=== PATIENT | female | born 1955 | race Asian ===

== ENCOUNTER 2016-09-06 03:54 | Inpatient (IN) | payer MEDICAID, OTHER ==
[2016-09-06] VITALS (26 sets, daily range): BP systolic 128–187; BP diastolic 72–138; PULSE 75–108; RESP 14–35; TEMP 97.6; Ht 160 cm; Wt 54.1 kg
[~2016-09-06] VITALS: Ht 160 cm; Wt 54.1 kg
[2016-09-06] MEDS ORDERED: SOD CHLORIDE 0.9% 500 ML IV STA (03:58)
[2016-09-06 04:17] LABS: ADD SCAN DIFF NO
[2016-09-06 04:20] LABS: BASOPHIL # 0.1 10^3/ul (0.0-0.1); BASOPHILS % 0.7 % (0.0-2.0); EOSINOPHILS # 0.2 10^3/ul (0.0-0.5); EOSINOPHILS % 2.9 % (0.0-7.0); LYMPHOCYTES # 1.8 10^3/ul (0.8-2.9); LYMPHOCYTES % 25.4 % (15.0-51.0); MEAN CORPUSCULAR HEMOGLOBIN 30.2 pg (29.0-33.0); MEAN CORPUSCULAR HGB CONC 33.3 g/dl (32.0-37.0); MEAN CORPUSCULAR VOLUME 90.5 fl (82.0-101.0); MEAN PLATELET VOLUME 10.8 fl (7.4-10.4); MONOCYTE # 0.4 10^3/ul (0.3-0.9); MONOCYTES % 5.8 % (0.0-11.0); NEUTROPHIL # 4.5 10^3/ul (1.6-7.5); NEUTROPHILS % 64.9 % (39.0-77.0); PLATELET COUNT 183 10^3/UL (140-415); RED BLOOD COUNT 4.64 10^6/ul (4.20-5.40); RED CELL DISTRIBUTION WIDTH 12.6 % (11.5-14.5); WHITE BLOOD COUNT 6.9 10^3/ul (4.8-10.8)
--- NOTE | 2016-09-06 04:30 | RADRPT ---
PROCEDURE: CT brain without contrast. CLINICAL INDICATION: Stroke. TECHNIQUE: CT scan of the brain was performed on a multi-detector high-resolution CT scanner. Co ntiguous axial images were obtained from the skull base to the vertex without intravenous contrast. Coronal and sagittal reformatted images were also obtained. Images were reviewed on the PACS works tation. One or more of the following dose reduction techniques were used: - Automated exposure control. - Adjustment of the mA and/or kV according to patient size. - Use of iterative reconstruction technique. Exam CTD/vol = 45.01 mGy. Total exam DLP = 720.23 mGy-cm. COMPARISON: None. FINDINGS: There is an area of parenchymal hemorrhage within the left frontal lobe measuring 3.3 x 3.2 cm with mild adjacent edema. There is no midline shift. The ventricles and cortical sulci are prominent co nsistent with mild age related volume loss. There are patchy areas of low attenuation within the pe riventricular white matter consistent with mild chronic ischemic changes secondary to small vessel d isease. There are mild atherosclerotic calcifications within bilateral distal internal carotid gilmar aga. The calvarium is intact. There is no evidence of fracture. Visualized paranasal sinuses and mastoi d air cells are clear. IMPRESSION: Left frontal parenchymal hemorrhage with mild adjacent edema. There is no midline shift. Mild age related volume loss and chronic ischemic white matter disease. Mild cerebral atherosclerosis. A call report was made to Dr. López at 04:28 a.m. .Jovanni Machado MD, MD Date Time Electronically viewed and signed by .Jovanni Machado MD, MD on 09/06/2016 04:29 .T/
[2016-09-06 04:35] LABS: INR 0.91; PROTIME 12.2 Sec (12.2-14.2)
[2016-09-06 04:36] LABS: ANION GAP 7 (8-16); BLOOD UREA NITROGEN 21 mg/dl (7-20); CALCIUM 9.8 mg/dl (8.4-10.2); CARBON DIOXIDE 29 mmol/L (21-31); CHLORIDE 103 mmol/L (97-110); CREATININE 0.83 mg/dl (0.44-1.00); GLUCOSE 106 mg/dl (70-220); POTASSIUM 4.3 mmol/L (3.5-5.1); SODIUM 135 mmol/L (135-144)
--- NOTE | 2016-09-06 04:49 | STROKE ---
Date/Time of Note Date/Time of Note DATE: 09/06/16 TIME: 04:45 Patient Information General Patient location: emergency Arrival Date Age 60 Gender female Weight 51 kg POC Glucose Glucose Result Bedside Glucose - 72 Hours Test 09/06/16 04:09 Bedside Glucose 107mg/dL (70-220) Vital Signs Vital Signs Vital Signs Date Time Temp Pulse Resp B/P Pulse Ox O2 Delivery O2 Flow Rate FiO2 09/06/16 04:08 56 20 201/100 100 Nasal Cannula 2.0 Patient History Current Medications Allergies: Coded Allergies: No Known Allergy (Unverified , 09/06/16) Labs Hematology Labs Hematology Test 09/06/16 04:10 White Blood Count 6.910^3/ul (4.8-10.8) Red Blood Count 4.6410^6/ul (4.20-5.40) Hemoglobin 14.0g/dl (12.0-16.0) Hematocrit 42.0% (37.0-47.0) Mean Corpuscular Volume 90.5fl (82.0-101.0) Mean Corpuscular Hemoglobin 30.2pg (29.0-33.0) Mean Corpuscular Hemoglobin Concent 33.3g/dl (32.0-37.0) Red Cell Distribution Width 12.6% (11.5-14.5) Platelet Count 23794^3/UL (140-415) Mean Platelet Volume 10.8fl (7.4-10.4) Neutrophils % 64.9% (39.0-77.0) Lymphocytes % 25.4% (15.0-51.0) Monocytes % 5.8% (0.0-11.0) Eosinophils % 2.9% (0.0-7.0) Basophils % 0.7% (0.0-2.0) Nucleated Red Blood Cells % 0.0/100WBC (0.0-0.0) Neutrophils # 4.510^3/ul (1.6-7.5) Lymphocytes # 1.810^3/ul (0.8-2.9) Monocytes # 0.410^3/ul (0.3-0.9) Eosinophils # 0.210^3/ul (0.0-0.5) Basophils # 0.110^3/ul (0.0-0.1) Nucleated Red Blood Cells # 0.010^3/ul (0.0-0.0) Chemistry Labs Chemistry Test 09/06/16 04:09 Bedside Glucose 107mg/dL (70-220) Coagulation Labs: Coagulation Test 09/06/16 04:10 Prothrombin Time 12.2Sec (12.2-14.2) Prothrombin Time Ratio 1.0 INR International Normalized Ratio 0.91 Activated Partial Thromboplast Time 32.0Sec (25.0-35.0) History & Physical Patient History Notes Pt Hx Reviewed History of Present Illness 60yo F presents with acute onset speech difficulty. Patient was washing up when her symptoms began, at 2am. Review of Systems Constitutional: no symptoms reported EENTM: no symptoms reported Respiratory: no symptoms reported Cardiovascular: no symptoms reported Gastrointestinal: no symptoms reported Genitourinary: no symptoms reported Musculoskeletal: no symptoms reported Skin: no symptoms reported Psychiatric/Neurological: no symptoms reported All Other Systems: Reviewed and Negative NIH Stroke Scale NIH Stroke Scale 1A - Level of Conciousness: 0 - Alert keenly [id number] LOC Questions: 0 - Answers both questions2 - Best Gaze: 0 - Normal3 - Visual: 0 - No visual loss 4 - Facial Palsy: 0 - No visual loss5A - Motor Arm - Left: 0 - No [id number] - Motor Arm - Right: 1 - [id number] - Motor Leg - Left: 0 - No [id number] - Motor Leg - Right: 0 - No drift7 - Limb Ataxia: 0 - Absent8 - Sensory: 0 - Normal9 - Best Language: 2 - Severe aphasiaDysarthria: 2 - [id number] - Extinction and inattentio: 0 - No abnormalityTotal Score: 5 Date/Time Recorded DATE: 09/06/16 TIME: 04:45 Submitted By Emmett Brand t-PA Imaging Review Imaging Reviewed: Yes Date/Time Imaging Reviewed DATE: 09/06/16 TIME: 04:29 Imaging Findings intraparenchymal hemorrhage t-PA Administration Recommendation: No Weight 51 kg Recommedation submitted by Emmett Brand Reason t-PA not Recommended hemorrhage t-PA Not Recommended Date/Time 09/06/16 04.31 Recommendations Impression Diagnosis intracerebral hemorrhage Recommendation 60yo F presents with acute onset speech difficulty. Neurological exam is notable for patient being mute but able to communicate by writing. Patient was unable to write a sentence to describe the picture, but was able to name objects and answer orientation questions by writing the answers. CT head is notable for intraparenchymal hemorrage in the left frontal lobe. I recommend serial CT Head and neurosurgery consultation. EMMETT BRAND Sep 06, 2016 04:49
[2016-09-06 04:51] LABS: TROPONIN-I < 0.012 ng/ml (0.00-0.12)
--- NOTE | 2016-09-06 05:21 | RADRPT ---
PROCEDURE: Chest. CLINICAL INDICATION: Chest pain. TECHNIQUE: Single frontal view of the chest was obtained. COMPARISON: None. FINDINGS: The cardiac silhouette is enlarged. The aortic arch is unremarkable. There is mild bibasilar atele ctasis. There is no focal consolidation, vascular congestion or pleural effusion. There is no pneu mothorax. IMPRESSION: Mild bibasilar atelectasis. Cardiomegaly. .Jovanni Machado MD, Date Time Electronically viewed and signed by .Jovanni Machado MD, MD on 09/06/2016 05:21 .T/
--- NOTE | 2016-09-06 05:37 | ERA ---
ER Documentation Chief Complaint Date/Time DATE: 09/06/16 TIME: 05:32 Chief Complaint Rt sided weakness, Last well known time 0240. HPI This 60-year-old female presents with acute onset of right arm weakness and inability to speak approximately 1 hour prior to arrival. She has no pain. This was noted by family who called. She has no history of stroke is not any blood thinners and her only medical problem is hypertension for which she takes an unknown medication once a day. Patient herself can follow commands and provide a history with yes and no answers. ROS All systems reviewed and are negative except as per history of present illness. Medications Home Meds Reported Medications Aspirin* (Aspirin* EC) 81 Mg Tablet.dr, 81 MG PO DAILY, TAB 09/06/16 Atenolol* (Atenolol*) 50 Mg Tablet, 50 MG PO DAILY, #30 TAB 09/06/16 Allergies Allergies: Coded Allergies: No Known Allergy (Unverified , 09/06/16) PMhx/Soc Medical and Surgical Hx: pt denies Surgical Hx Hx Cardiac Disorders: Yes (HTN) Hx Alcohol Use: No Hx Substance Use: No Hx Tobacco Use: No Smoking Status: Never smoker Physical Exam Vitals Vital Signs Date Time Temp Pulse Resp B/P Pulse Ox O2 Delivery O2 Flow Rate FiO2 09/06/16 05:46 97.6 63 15 180/100 100 Nasal Cannula 2.0 09/06/16 05:04 60 20 177/92 100 Nasal Cannula 2.0 09/06/16 04:08 56 20 201/100 100 Nasal Cannula 2.0 09/06/16 03:59 67 18 195/111 100 09/06/16 03:54 Nasal Cannula 2 Physical Exam Const: [] Mild distress, looks worried Head: Atraumatic Eyes: Normal Conjunctiva ENT: Normal External Ears, Nose and Mouth. Neck: Full range of motion..~ No meningismus. Resp: Clear to auscultation bilaterally Cardio: Regular rate and rhythm, no murmurs Abd: Soft, non tender, non distended. Normal bowel sounds Skin: No petechiae or rashes Back: No midline or flank tenderness Ext: No cyanosis, or edema Neur: Awake and alert and oriented 3, cranial nerves II through XII intact, no cerebellar deficits on cronin to cronin contact, unable to perform finger-nose test because of patient's right arm weakness, patient can make sounds with her mouth but not form words, 3 out of 5 strength of proximal and distal right upper extremity. NIH equals 4. Psych: Normal Mood and Affect Result Diagram: 09/06/1640909/06/16409 Results 24 hrs Laboratory Tests Test 09/06/16 04:09 09/06/16 04:10 09/06/16 05:34 Bedside Glucose 107mg/dL White Blood Count 6.910^3/ul Red Blood Count 4.6410^6/ul Hemoglobin 14.0g/dl Hematocrit 42.0% Mean Corpuscular Volume 90.5fl Mean Corpuscular Hemoglobin 30.2pg Mean Corpuscular Hemoglobin Concent 33.3g/dl Red Cell Distribution Width 12.6% Platelet Count 24877^3/UL Mean Platelet Volume 10.8fl Neutrophils % 64.9% Lymphocytes % 25.4% Monocytes % 5.8% Eosinophils % 2.9% Basophils % 0.7% Nucleated Red Blood Cells % 0.0/100WBC Neutrophils # 4.510^3/ul Lymphocytes # 1.810^3/ul Monocytes # 0.410^3/ul Eosinophils # 0.210^3/ul Basophils # 0.110^3/ul Nucleated Red Blood Cells # 0.010^3/ul Prothrombin Time 12.2Sec Prothrombin Time Ratio 1.0 INR International Normalized Ratio 0.91 Activated Partial Thromboplast Time 32.0Sec Sodium Level 135mmol/L Potassium Level 4.3mmol/L Chloride Level 103mmol/L Carbon Dioxide Level 29mmol/L Anion Gap 7 Blood Urea Nitrogen 21mg/dl Creatinine 0.83mg/dl Glucose Level 106mg/dl Hemoglobin A1c 5.5% Calcium Level 9.8mg/dl Troponin I < 0.012ng/ml Urine Color STRAW Urine Clarity CLEAR Urine pH 7.0 Urine Specific [place] 1.009 Urine Ketones NEGATIVEmg/dL Urine Nitrite NEGATIVEmg/dL Urine Bilirubin NEGATIVEmg/dL Urine Urobilinogen NEGATIVEmg/dL Urine Leukocyte Esterase NEGATIVELeu/ul Urine Hemoglobin NEGATIVEmg/dL Urine Glucose NEGATIVEmg/dL Urine Total Protein NEGATIVEmg/dl Current Medications Medications (Trade) Dose Ordered Sig/Emily Route PRN Reason Start Time Stop Time Status Last Admin Dose Admin Sodium Chloride (NS) 500 ml @ 500 mls/hr Q1H STAT IV 09/06/16 03:58 09/06/16 04:57 DC 09/06/16 04:48 Procedures/MDM Acute hemorrhagic stroke. Patient with acute onset right parenchymal bleed causing right arm deficits and speech deficits. Initially code stroke was called. Brain bleed was found. Head of bed was elevated greater than 30. Patient's blood pressure is initially quite hypertensive. It did lower without any acute treatment. This point I feel that acutely lowering the blood pressure too much with decreased cerebral perfusion pressure and acute IV medications should not be used. Her blood pressure does increase significant I will decrease the pressure. She is not any blood thinners her coagulation studies are normal. No signs of cardiac ischemia. I spoke with Dr. Syed who will be managed the patient neurosurgically. EKG interpretation: Sinus bradycardia rate of 56, normal axis, no ST or T-wave changes concerning for acute ischemia. Normal intervals. site monitor interpretation: Sinus rhythm without arrhythmia Head CT interpretation: Right spherical 3 cm acute hemorrhage, no mass-effect or midline shift. No skull fracture. Critical care time 41 minutes: This includes management of a hemorrhagic stroke , discussion with neurosurgeon, multiple and frequent visits the patient's bedside to assess status for any signs of increasing intracranial pressure neurological changes, consideration of using backup medication to lower blood pressure, consideration of intubation to hyperventilate patient, discussion with admitting doctor, discussion with patient and family, chart review. This does not include any billable procedures Departure Diagnosis: Primary Impression: Hemorrhagic stroke Additional Impression: Right arm weakness Condition: Critical TERESA BLANK DO Sep 06, 2016 05:37
[2016-09-06 05:51] LABS: ADD UMIC NO; UR ASCORBIC ACID NEGATIVE (NEGATIVE); UR BILIRUBIN (Dip) NEGATIVE (NEGATIVE); UR BLOOD (Dip) NEGATIVE (NEGATIVE); UR CLARITY CLEAR (CLEAR); UR COLOR STRAW (YELLOW); UR GLUCOSE (Dip) NEGATIVE (NEGATIVE); UR KETONES (Dip) NEGATIVE (NEGATIVE); UR LEUKOCYTE ESTERASE (Dip) NEGATIVE Leu/ul (NEGATIVE); UR NITRITE (Dip) NEGATIVE (NEGATIVE); UR SPECIFIC GRAVITY (Dip) 1.009 (1.003-1.030); UR TOTAL PROTEIN (Dip) NEGATIVE (NEGATIVE); UR UROBILINOGEN (Dip) NEGATIVE (NEGATIVE)
[2016-09-06] MEDS ORDERED: ASPI-664 PO ×2 (05:59→06:07)
[2016-09-06] MEDS ORDERED: ATEN50TA PO ×2 (05:59→06:07)
[2016-09-06 06:14] LABS: BARBITURATES Negative (NEGATIVE); BENZODIAZEPINES Negative (NEGATIVE); CANNABINOIDS Negative (NEGATIVE); COCAINE Negative (NEGATIVE); OPIATES Negative (NEGATIVE)
--- NOTE | 2016-09-06 07:00 | HP ---
Date/Time of Note Date/Time of Note DATE: 09/06/16 TIME: 06:41 Assessment/Plan VTE Prophylaxis VTE Prophylaxis Intervention: SCD's Lines/Catheters IV [facility]from [facility] Saline Lock Assessment/Plan Chief Complaint/Hosp Course This is a 52-year-old female being admitted to the ICU floor for: #1 Left frontal parenchymal hemorrhage: CT scan shows: Left frontal parenchymal hemorrhage with mild adjacent edema. There is no midline shift. She was evaluated by tele neurology recommendation was to have neurosurgery evaluate the patient as well. Neurosurgery was contacted they will see the patient. At the current time will manage the patient in the ICU. We will keep the patient n.p.o. for now. Will order speech and swallow eval PT OT, repeat CT scan within 24 hours. Goal is to maintain blood pressure of less than 180/ 105. Consult neurology and neurosurgery is ready on consult. #2 hypertension: Hold home medication at this time. Monitor blood pressure as per #1 #3 DVT and GI prophylaxis: SCDs, Protonix Further treatment strategy will be implemented for the clinical course Greater than 40 minutes of critical care time was spent on the history and physical assessment and plan this patient. Problems: HPI/ROS Admit Date/Time Admit Date/Time Hx of Present Illness Chief complaint: Right arm weakness this 60-year-old female presents with acute onset of right arm weakness and inability to speak approximately 1 hour prior to arrival. She has no pain. This was noted by family who called. She has no history of stroke is not any blood thinners and her only medical problem is hypertension for which she takes an unknown medication once a day. Patient herself can follow commands and provide a history with yes and no answers. Above was obtained from the ED documentation prior to tele-neurology. Upon my examination, patient continues to have expressive aphasia. She however does understand and responds with head nodding and with writing. Her strength on the right side appears to be 4 out of 5 in bilateral upper and lower extremities compared to the left. This likely is improvement from her initial presentation when he was noted to be approximately 3 out of 5 as per the ED physician exam. Medications: See MAR Allergies: NKDA ROS Subjective hx not possible: pt non-verbal (Secondary to acute hemorrhage) PMH/Family/Social Past Medical History Hypertension Past Surgical History Past Surgical Hx: no surgical history Family History Significant Family History: no pertinent family hx Social History Alcohol Use: none Smoking Status: Never smoker Drug Use: none Exam/Review of Systems Vital Signs Vitals Vital Signs Date Time Temp Pulse Resp B/P Pulse Ox O2 Delivery O2 Flow Rate FiO2 09/06/16 06:08 60 15 175/98 100 Nasal Cannula 2.0 09/06/16 05:46 97.6 Exam Exam General: Patient is a well-developed female laying in bed in no acute distress. HEENT: Atraumatic, normocephalic. The pupils are equal, round and reactive. Extraocular motor are intact Neck: Supple with full range of motion. No rigidity or meningismus Chest: Nontender Lungs: Clear to auscultation bilaterally no crackles rales or wheezing Heart: Normal S1-S2, Regular rhythm and rate. No murmur, S3, or S4 Abdomen: Soft , nontender, nondistended , bowel sounds are present. No guarding no rebound tenderness , No masses or organomegaly. No costovertebral temporal angle mass Extremities: Normal to inspection, no edema no cyanosis Neurologic: Patient is awake and alert, she is mute at the current time. She is able to respond to questions with head nodding as well as writing her answers down. She does have focal neurological deficits of not being able to speak. On my exam her right upper extremity and lower extremity strength is 4 out of 5 bilaterally. Which is an improvement from earlier when it was noted to be 3 out of 5 on her initial presentation and examination. Additional Comments PROCEDURE: CT brain without contrast. CLINICAL INDICATION: Stroke. TECHNIQUE: CT scan of the brain was performed on a multi-detector high- resolution CT scanner. Contiguous axial images were obtained from the skull base to the vertex without intravenous contrast. Coronal and sagittal reformatted images were also obtained. Images were reviewed on the PACS workstation. One or more of the following dose reduction techniques were used: - Automated exposure control. - Adjustment of the mA and/or kV according to patient size. - Use of iterative reconstruction technique. Exam CTD/vol = 45.01 mGy. Total exam DLP = 720.23 mGy-cm. COMPARISON: None. FINDINGS: There is an area of parenchymal hemorrhage within the left frontal lobe measuring 3.3 x 3.2 cm with mild adjacent edema. There is no midline shift. The ventricles and cortical sulci are prominent consistent with mild age related volume loss. There are patchy areas of low attenuation within the periventricular white matter consistent with mild chronic ischemic changes secondary to small vessel disease. There are mild atherosclerotic calcifications within bilateral distal internal carotid arteries. The calvarium is intact. There is no evidence of fracture. Visualized paranasal sinuses and mastoid air cells are clear. IMPRESSION: Left frontal parenchymal hemorrhage with mild adjacent edema. There is no midline shift. Mild age related volume loss and chronic ischemic white matter disease. Mild cerebral atherosclerosis. A call report was made to Dr. López at 04:28 a.m. .Jovanni Machado MD, MD Date Time Electronically viewed and signed by .Jovanni Machado MD, MD on 09/06/2016 04:29 EKG interpretation: Sinus bradycardia rate of 56, normal axis, no ST or T-wave changes concerning for acute ischemia. Normal intervals. As per ED physician documentation Labs Result Diagram: 09/06/16 0410 09/06/16 0410 LANIE POWELL Sep 06, 2016 06:59
[2016-09-06] MEDS ORDERED: LABETALOL HCL 20MG INJ IV PRN (07:30)
[2016-09-06] MEDS ORDERED: ACETAMINOPHEN 325 MG TAB PO PRN (07:30)
[2016-09-06] MEDS ORDERED: ACETAMINOPHEN 650 MG SUPP PR PRN (07:30)
[2016-09-06 08:18] LABS: CHOL/HDL RATIO 2.9 RATIO
--- NOTE | 2016-09-06 10:06 | CONS ---
Date/Time of Note Date/Time of Note DATE: 09/06/16 TIME: 09:41 Assessment/Plan Assessment/Plan Problems: (1) Intracranial hemorrhage Comment: Patient with spontaneous posterior L frontal bleed. This is about 3cm with some local mass effect but no shift. She remains awake and alert. No indication for neurosurgical intervention at this time. She has productive aphasia and R arm weakness, which is consistent with site of bleed. May also have apraxia. Will require observation and rehabilitation given neurological deficit. With proper rehabilitation, including OT/PT/speech therapy , prognosis is good for significant recovery. She does have HTN, unclear if this was well-controlled. While hypertensive bleed is a possibility, the lobar location of the bleed is not typical. This raises the possibility of other causes, including underlying vascular abnormality or tumor. Bleed not c/w perdue aneurysm but could be AVM, other vascular malformation, tumor, other vasculopathy. This will require further investigation. Risk of rebleed is low but not zero from these potential causes. Recommend: 1. Observe in ICU. 2. BP control with goal to keep SBP < about 160. Do not overtreat BP, ideally SBP 140-170. 3[address] Repeat CT later today. 4. If CT not significantly changed, OK to transfer from ICU. If CT unchanged, OK to advance diet and activity. 5. Will require MRI +/- contrast. Further studies possible depending upon findings. If MRI negative, will need to repeat scan in 6-8 weeks since underlying abnormality could be hidden by acute blood products. 6. Plan on PT/OT/speech therapy. 7. No narcotics or sedatives. 8. No indication for steroids. 9. No strong indication for anticonvulsant medications, but will defer to neurology. 10. Keep patient euvolemic. Avoid hypovolemia or fluid overload. Consultation Date/Type/Reason Admit Date/Time Date of Consultation: Sep 06, 2016 Type of Consultation: Neurosurgery Reason for Consultation Brain Hemorrhage Hx of Present Illness Patient seen in ER. History obtained from chart and from MDs as patient is unable to provide history. Apparently, at about 2AM, she had sudden onset of speech difficulty and R hand weakness. No seizure or syncope. No trauma. No precipitating event. Denies headache or any pain. This happened while she was washing and it was noted by family. She was brought to ER for evaluation. CT done. She was noted to be hypertensive with SBP > 200. At the current time, she is limited in communication, but she does seem to nod appropriately to simple questions. She is R handed and attempts to write with her L hand to communicate as well, but this in not intelligible. No history of stroke or other neurological problems. Does have history of HTN. Do not know if this is well-treated. Subjective hx not possible: pt non-verbal Eyes: No visual change Respiratory: No shortness of breath Cardiovascular: No chest pain Gastrointestinal: No pain Musculoskeletal: No neck pain Neurologic: focal-weakness, No dizziness, No headache, No seizure, No syncope Additional Comments ROS limited due to communication but able to get some answers as she nods Past Medical History Medical History: hypertension Past Surgical History Past Surgical Hx: no surgical history Social History Alcohol Use: none Smoking Status: Never smoker Drug Use: none Exam/Review of Systems Vital Signs Vitals Vital Signs Date Time Temp Pulse Resp B/P Pulse Ox O2 Delivery O2 Flow Rate FiO2 09/06/16 07:19 63 29 169/91 100 09/06/16 06:08 Nasal Cannula 2.0 09/06/16 05:46 97.6 Exam Constitutional: alert Head: atraumatic, normocephalic Eyes: EOMI, PERRL Neck: non-tender, supple, No nuchal rigidity Extremities: normal pulses, other (scar R cronin), No calf tenderness, No edema Neurological: other (easily arousable to voice. Opens eyes and regards examiner. No vocalizations. Nods to questions. Purposeful and follows commands, but with some apraxia as she does not follow commands precisely (e.g., show 2 fingers or stick out tongue). PERRL, EOMI, possible very mild R facial weakness , central pattern, more detailed CN exam not possible; 5/5 strength throughout on L with normal bulk and tone; RUE proximal 4/5 with slowness to response, public health inspector 0/5; RLE 5/5 proximal and distal; bulk and tone normal; does nod that she is able to feel LT all extremities; DTRs 2+/2 throughout, but R side slightly more brisk at bicep and knee; L toe downgoing, R toe equivocal; more detailed exam not possible), No lethargic, No nl speech, No nl strength Results I reviewed CT brain showing acute ICH posterior L frontal. Just over 3cm. This is lobar hemorrhage rather than deep hemorrhage. Some local mass effect, no midline shift. Ventricles normal in size, no IVH. ? small amount of blood in sulci adjacent to site of intraparenchymal bleed. Result Diagram: 09/06/16 0410 09/06/16 0410 Results 24 hrs Laboratory Tests Test 09/06/16 04:09 09/06/16 04:10 09/06/16 05:34 Bedside Glucose 107 White Blood Count 6.9 Red Blood Count 4.64 Hemoglobin 14.0 Hematocrit 42.0 Mean Corpuscular Volume 90.5 Mean Corpuscular Hemoglobin 30.2 Mean Corpuscular Hemoglobin Concent 33.3 Red Cell Distribution Width 12.6 Platelet Count 183 Mean Platelet Volume 10.8 H Neutrophils % 64.9 Lymphocytes % 25.4 Monocytes % 5.8 Eosinophils % 2.9 Basophils % 0.7 Nucleated Red Blood Cells % 0.0 Neutrophils # 4.5 Lymphocytes # 1.8 Monocytes # 0.4 Eosinophils # 0.2 Basophils # 0.1 Nucleated Red Blood Cells # 0.0 Prothrombin Time 12.2 Prothrombin Time Ratio 1.0 INR International Normalized Ratio 0.91 Activated Partial Thromboplast Time 32.0 Sodium Level 135 Potassium Level 4.3 Chloride Level 103 Carbon Dioxide Level 29 Anion Gap 7 L Blood Urea Nitrogen 21 H Creatinine 0.83 Glucose Level 106 Hemoglobin A1c 5.5 Calcium Level 9.8 Troponin I < 0.012 Triglycerides Level 86 Cholesterol Level 217 H LDL Cholesterol, Calculated 126 HDL Cholesterol 74 Cholesterol/HDL Ratio 2.9 Urine Color STRAW Urine Clarity CLEAR Urine pH 7.0 Urine Specific [place] 1.009 Urine Ketones NEGATIVE Urine Nitrite NEGATIVE Urine Bilirubin NEGATIVE Urine Urobilinogen NEGATIVE Urine Leukocyte Esterase NEGATIVE Urine Hemoglobin NEGATIVE Urine Glucose NEGATIVE Urine Total Protein NEGATIVE Urine Opiates Screen Negative Urine Barbiturates Negative Urine Amphetamines Screen Negative Urine Benzodiazepines Screen Negative Urine Cocaine Screen Negative Urine Cannabinoids Negative Medications Medications Current Medications Ondansetron HCl (Zofran Inj) 4 mg Q6H PRN IV NAUSEA AND/OR VOMITING; Start at 07:30 Acetaminophen (Tylenol Supp) 650 mg Q4H PRN [place] PAIN LEVEL 1-3 OR FEVER; Start 09/06/16 at 07:30 Pantoprazole (Protonix Iv) 40 mg DAILY@06 IV ; Start 09/07/16 at 06:00 Labetalol HCl (Labetalol) 10 mg Q10M PRN IV ELEVATED BLOOD PRESSURE; Start at 07:30 Acetaminophen (Tylenol Tab) 650 mg Q4H PRN PO TEMP GREATER THAN 99.6F; Start at 07:30 Docusate Sodium (Colace) 100 mg BID PO ; Start 09/06/16 at 21:00 SHAYNA GOLD MD Sep 06, 2016 09:52
--- NOTE | 2016-09-06 11:04 | CONS ---
Date/Time of Note Date/Time of Note DATE: 09/06/16 TIME: 10:50 Assessment/Plan Assessment/Plan Chief Complaint/Hosp Course 60 year old female with history of hypertension admitted with left frontal cortical hemorrhage ~30 cc w mild edema without midline shift, no requirement for neurosurgical intervention at this time. Recommendations: -agree with plan to lower SBP<160 gradually will achieve goal of less than 140 over the next few days -holding all antiplatelets, may use SCD for DVT ppx -MRI Brain with and without contrast to evaluate for underlying mass/ vascular malformation, include SWI sequence to r/o amyloid angiopathy -maintain afebrile, euglycemic, isotonic fluids only -no reported seizure activity, will hold of on AED prophylaxis -planned for repeat Head CT later today -continue close neuro checks agree with plan for ICU admission -PT/OT/Speech she will likely benefit from Acute Rehab -will request. Dr. Rob to follow tomorrow Problems: Consultation Date/Type/Reason Admit Date/Time 09/06/16 Date of Consultation: Sep 06, 2016 Type of Consultation: Neurology Reason for Consultation right cortical hemorrhage Referring Provider: LANIE POWELL Hx of Present Illness 60 year old female from [facility] with history of hypertension reportedly on aspirin at home admitted with right arm weakness and expressive aphasia one hour prior to arrival with elevated SBP>200, imaging showed left frontal parenchymal hemorrhage ~30 cc with mild edema without midline shift or signs of hydrocephalus. There is no report of seizure activity she has no history of prior admission for similar symptoms. She is planned for ICU admission for close monitoring and further work up to rule out underlying mass/ vascular malformation. Subjective hx not possible: pt critical Eyes: No visual change Respiratory: No shortness of breath Cardiovascular: No chest pain Gastrointestinal: No pain Musculoskeletal: No neck pain Neurologic: focal-weakness, No dizziness, No headache, No seizure, No syncope Past Medical History Medical History: hypertension Past Surgical History Past Surgical Hx: no surgical history Social History Alcohol Use: none Smoking Status: Never smoker Drug Use: none Exam/Review of Systems Vital Signs Vitals Vital Signs Date Time Temp Pulse Resp B/P Pulse Ox O2 Delivery O2 Flow Rate FiO2 09/06/16 10:00 57 16 150/87 100 Room Air 09/06/16 06:08 2.0 09/06/16 05:46 97.6 Exam awake and alert tracks examiner well can only say her name mostly expressive aphasia she does follow most commands no neglect likely verbal apraxia CN: LAURA, blinks to threat b/l, right facial droop, palate upgoing uvula midline scm/trap intact tongue midline Motor: right arm lifts anti-gravity can sustain over 10 seconds with weak parts cataloger strength 3/5, right leg anti-gravity strength 4/5 left arm and left full strength 5/5 Sensory senses noxious stimuli on right arm and leg Coordination ataxia in proportion to weakness on right arm Reflexes 2+ symmetric throughout Results Result Diagram: 09/06/160 09/06/16409 Results 24 hrs Laboratory Tests Test 09/06/16 04:09 09/06/16 04:10 09/06/16 05:34 Bedside Glucose 107 White Blood Count 6.9 Red Blood Count 4.64 Hemoglobin 14.0 Hematocrit 42.0 Mean Corpuscular Volume 90.5 Mean Corpuscular Hemoglobin 30.2 Mean Corpuscular Hemoglobin Concent 33.3 Red Cell Distribution Width 12.6 Platelet Count 183 Mean Platelet Volume 10.8 H Neutrophils % 64.9 Lymphocytes % 25.4 Monocytes % 5.8 Eosinophils % 2.9 Basophils % 0.7 Nucleated Red Blood Cells % 0.0 Neutrophils # 4.5 Lymphocytes # 1.8 Monocytes # 0.4 Eosinophils # 0.2 Basophils # 0.1 Nucleated Red Blood Cells # 0.0 Prothrombin Time 12.2 Prothrombin Time Ratio 1.0 INR International Normalized Ratio 0.91 Activated Partial Thromboplast Time 32.0 Sodium Level 135 Potassium Level 4.3 Chloride Level 103 Carbon Dioxide Level 29 Anion Gap 7 L Blood Urea Nitrogen 21 H Creatinine 0.83 Glucose Level 106 Hemoglobin A1c 5.5 Calcium Level 9.8 Troponin I < 0.012 Triglycerides Level 86 Cholesterol Level 217 H LDL Cholesterol, Calculated 126 HDL Cholesterol 74 Cholesterol/HDL Ratio 2.9 Urine Color STRAW Urine Clarity CLEAR Urine pH 7.0 Urine Specific [place] 1.009 Urine Ketones NEGATIVE Urine Nitrite NEGATIVE Urine Bilirubin NEGATIVE Urine Urobilinogen NEGATIVE Urine Leukocyte Esterase NEGATIVE Urine Hemoglobin NEGATIVE Urine Glucose NEGATIVE Urine Total Protein NEGATIVE Urine Opiates Screen Negative Urine Barbiturates Negative Urine Amphetamines Screen Negative Urine Benzodiazepines Screen Negative Urine Cocaine Screen Negative Urine Cannabinoids Negative Medications Medications Current Medications Ondansetron HCl (Zofran Inj) 4 mg Q6H PRN IV NAUSEA AND/OR VOMITING; Start at 07:30 Acetaminophen (Tylenol Supp) 650 mg Q4H PRN [place] PAIN LEVEL 1-3 OR FEVER; Start 09/06/16 at 07:30 Pantoprazole (Protonix Iv) 40 mg DAILY@06 IV ; Start 09/07/16 at 06:00 Labetalol HCl (Labetalol) 10 mg Q10M PRN IV ELEVATED BLOOD PRESSURE; Start at 07:30 Acetaminophen (Tylenol Tab) 650 mg Q4H PRN PO TEMP GREATER THAN 99.6F; Start at 07:30 Docusate Sodium (Colace) 100 mg BID PO ; Start 09/06/16 at 21:00 HENRY STALLINGS MD Sep 06, 2016 11:02
--- NOTE | 2016-09-06 11:29 | RADRPT ---
PROCEDURE: CT Brain without contrast. CLINICAL INDICATION: 60-year-old female prior intracranial hemorrhage. Follow-up imaging. TECHNIQUE: A CT of the brain was performed on a [employer] V[employer] CT scanner utiliz ing a low dose technique with axial imaging from the skull base through the vertex without IV contra st. Multiplanar reformatted images were made. Images were reviewed on a PACS workstation. The CTD Ivol is 45 mGy and the DLP is 720 mGycm. One or more of the following dose reduction techniques were used: - Automated exposure control. - Adjustment of the mA and/or kV according to patient size. Use of iterative reconstruction technique. COMPARISON: CT scan of the brain 09/06/2016 04:04 a.m. FINDINGS: The fourth ventricle is normal in size. The third and lateral ventricles are normal in size and con figuration. A stable hematoma is identified in the dorsal left frontal lobe measuring about 3.2 cm t ransverse by 3.1 cm AP. This is unchanged compared to the prior study when measured about 3.2 cm tr ansverse by 3 cm AP in the axial plane. In the coronal plane the long axis of the hematoma measures up to 5.5 cm. It measured only 4.8 cm on the prior study in the coronal plane. There are slight di fferences in orientation which may explain mass apparent change. There is surrounding vasogenic steven a with no evidence of subfalcine or transtentorial herniation noted. There are chronic small vessel ischemic changes in the periventricular white matter tracts adjacent to the lateral ventricles with mild cerebral atrophy. These findings are unchanged. The visible portions of the globes and extraocular muscles are normal. The paranasal sinuses are cl ear. The mastoid air cells and internal auditory canals are normal. The bony calvarium is intact. There are vascular calcifications in the cavernous and supracavernous portions of the internal carot id arteries. IMPRESSION: 1. Possible slight interval increase in the coronal plane of the intracranial hematoma left frontal lobe. It now measures up to 5.5 cm in long axis in the coronal plane as compared to 4.8 cm on the prior study. Apparent differences are most likely the result of slight orientation of the reconstru cted coronal images. It is unchanged in the axial plane. There is surrounding vasogenic edema. 2. Mild cerebral atrophy with chronic small vessel ischemic changes in the periventricular white ma tter tracts adjacent to the lateral ventricles. 3. There are vascular calcifications in the cavernous and supracavernous portions of the internal ca rotid arteries. RPTAT:AAJJ Physician Cyndie Date Time Electronically viewed and signed by Jose Hernandez Physician on 09/06/2016 11:29 MANUEL/
[2016-09-06] MEDS: hydrALAzine 20 MG INJ IV PRN ×2 (12:04→20:29)
--- NOTE | 2016-09-06 12:30 | PN ---
Date/Time of Note Date/Time of Note DATE: 09/06/16 TIME: 12:23 Assessment/Plan VTE Prophylaxis VTE Prophylaxis Intervention: SCD's Lines/Catheters IV [facility] Saline Lock Assessment/Plan Chief Complaint/Hosp Course Assessment and plan 1. Acute CVA with left frontal parenchymal hemorrhage: Neurosurgery and neurology has been consulted Minimal increase in the size of the hemorrhage on repeat CT and neurosurgery has been notified regarding this matter. No midline shift No change in patient's mental condition. We will keep the patient n.p.o. for now. Will order speech and swallow eval PT OT, Continue to monitor blood pressure 2. hypertension: Patient has been placed on as needed blood pressure, hold home medication until advised by neurology 3. DVT and GI prophylaxis: SCDs, Protonix (refrain from using any pharmacologic DVT prophylaxis secondary to intracranial hemorrhage) Further treatment strategy will be implemented for the clinical course Problems: Subjective 24 Hr Interval Summary Free Text/Dictation Patient denies of any headache changes visual acuity Denies any chest pain or shortness of breath Right upper extremity weakness Exam/Review of Systems Vital Signs Vitals Vital Signs Date Time Temp Pulse Resp B/P Pulse Ox O2 Delivery O2 Flow Rate FiO2 09/06/16 12:02 60 14 182/104 100 Room Air 09/06/16 06:08 2.0 09/06/16 05:46 97.6 Exam General: The patient is well-developed, Not in acute distress. HEENT: Atraumatic, normocephalic. The pupils are equal and round . Neck: Supple Chest: Normal Lungs: Clear to auscultation bilaterally Heart: Normal S1-S2, Regular rhythm and rate. Abdomen: Soft , nontender, nondistended , bowel sounds are present. Extremities: Right upper extremity weakness3/5 , with flexion at the wrist, left upper extremity and bilateral lower extremity full range of motion and strength is 5 out of 5, no edema no cyanosis Neurologic: Normal mental status,The patient is awake, alert and oriented . Results Result Diagram: 09/06/16 0410 09/06/16 0410 Results 24 hrs Laboratory Tests Test 09/06/16 04:09 09/06/16 04:10 09/06/16 05:34 Bedside Glucose 107 White Blood Count 6.9 Red Blood Count 4.64 Hemoglobin 14.0 Hematocrit 42.0 Mean Corpuscular Volume 90.5 Mean Corpuscular Hemoglobin 30.2 Mean Corpuscular Hemoglobin Concent 33.3 Red Cell Distribution Width 12.6 Platelet Count 183 Mean Platelet Volume 10.8 H Neutrophils % 64.9 Lymphocytes % 25.4 Monocytes % 5.8 Eosinophils % 2.9 Basophils % 0.7 Nucleated Red Blood Cells % 0.0 Neutrophils # 4.5 Lymphocytes # 1.8 Monocytes # 0.4 Eosinophils # 0.2 Basophils # 0.1 Nucleated Red Blood Cells # 0.0 Prothrombin Time 12.2 Prothrombin Time Ratio 1.0 INR International Normalized Ratio 0.91 Activated Partial Thromboplast Time 32.0 Sodium Level 135 Potassium Level 4.3 Chloride Level 103 Carbon Dioxide Level 29 Anion Gap 7 L Blood Urea Nitrogen 21 H Creatinine 0.83 Glucose Level 106 Hemoglobin A1c 5.5 Calcium Level 9.8 Troponin I < 0.012 Triglycerides Level 86 Cholesterol Level 217 H LDL Cholesterol, Calculated 126 HDL Cholesterol 74 Cholesterol/HDL Ratio 2.9 Urine Color STRAW Urine Clarity CLEAR Urine pH 7.0 Urine Specific [place] 1.009 Urine Ketones NEGATIVE Urine Nitrite NEGATIVE Urine Bilirubin NEGATIVE Urine Urobilinogen NEGATIVE Urine Leukocyte Esterase NEGATIVE Urine Hemoglobin NEGATIVE Urine Glucose NEGATIVE Urine Total Protein NEGATIVE Urine Opiates Screen Negative Urine Barbiturates Negative Urine Amphetamines Screen Negative Urine Benzodiazepines Screen Negative Urine Cocaine Screen Negative Urine Cannabinoids Negative Medications Medications Current Medications Ondansetron HCl (Zofran Inj) 4 mg Q6H PRN IV NAUSEA AND/OR VOMITING; Start at 07:30 Acetaminophen (Tylenol Supp) 650 mg Q4H PRN [place] PAIN LEVEL 1-3 OR FEVER; Start 09/06/16 at 07:30 Pantoprazole (Protonix Iv) 40 mg DAILY@06 IV ; Start 09/07/16 at 06:00 Labetalol HCl (Labetalol) 10 mg Q10M PRN IV ELEVATED BLOOD PRESSURE; Start at 07:30 Acetaminophen (Tylenol Tab) 650 mg Q4H PRN PO TEMP GREATER THAN 99.6F; Start at 07:30 Docusate Sodium (Colace) 100 mg BID PO ; Start 09/06/16 at 21:00 Hydralazine HCl (Apresoline) 10 mg Q6H PRN IV SBP ABOVE 165 Last administered on 09/06/16t 12:04; Admin Dose 10 MG; Start 09/06/16 at 12:00 DIAMOND CURRIE MD Sep 06, 2016 12:30
--- NOTE | 2016-09-06 14:11 | RADRPT ---
PROCEDURE: Carotid ultrasound CLINICAL INDICATION: Carotid stenosis, carotid bruits TECHNIQUE: Montero scale, color doppler, spectral doppler ultrasound of the bilateral carotid and gabe tebral arteries. This study indirectly references the measurement of the distal ICA diameter as the denominator for s tenosis measurement. Validated velocity measurements with angiographic measurements, velocity criter ia are extrapolated from diameter data as defined by: *Cartoid artery stenosis: montero-scale and Doppl er US diagnosis. Society of Radiologists in Ultrasound Consensus Conference. Radiology 2003; 229: 34 0-346. SRU Consensus Conference Criteria for the Diagnosis of Carotid Artery Stenosis* Degree of Stenosis, % ICA PSV, cm/sec Plaque Estimate, % ICA/CCA PSV Ratio Normal <125 None <2.0 <50 <125 <50 <2.0 50 69 125-230 >50 2.0-4.0 >70 but less than near occlusion >230 >50 <4.0 Near occlusion High, low, or undetectable Visible Variable Total occlusion Undetectable Visible, no detectable lumen Not applicable COMPARISON: No prior studies are available for comparison. FINDINGS: Location Right CCA91 cm/sec Prox ICA 65 cm/sec Mid ICA58 cm/sec Dist ICA46 cm/sec ECA67 cm/sec ICA/CCA0.8 Left CCA91 cm/sec Prox ICA 61 cm/sec Mid ICA61 cm/sec Dist ICA55 cm/sec ECA71 cm/sec ICA/CCA0.8 Plaque burden: No significant plaque is seen. Antegrade flow is seen within the vertebral arteries bilaterally. IMPRESSION: No evidence of a hemodynamically significant carotid stenosis. RPTAT: AADD .Tommy Fonseca MD, Date Time Electronically viewed and signed by .Tommy Fonseca MD, MD on 09/06/2016 14:10 .B/
--- NOTE | 2016-09-06 16:08 | RADRPT ---
PROCEDURE: MR Brain with and without contrast. CLINICAL INDICATION: Intracranial hemorrhage, assess for stroke TECHNIQUE: An MRI of the brain was performed utilizing the following sequences: Axial T1, axial T 2, axial FLAIR, coronal gradient echo, sagittal T1 FLAIR, diffusion weighted imaging, and ADC map. P ostcontrast images were obtained after administration of 10 cc of Magnevist. COMPARISON: CT of the same day FINDINGS: There is a left frontal parietal parenchymal hematoma, measuring up to 3.4 x 3.9 x 3.1 cm CC by AP b y transverse. There is heterogeneous high T1 signal consistent with acute blood products. There is mild adjacent T2 hyperintensity consistent with vasogenic edema. There is no diffusion restriction identified to suggest acute infarct. There is effacement of overlying sulci. Ventricles remain symm etric and normal in configuration. There is minimal midline shift to the right, measuring up to 2 m m. There is susceptibility artifact in the posterior right external capsule, and in the right frontal c raffaele radiata, which appears consistent with small areas of old blood products. There is a small foc us of susceptibility artifact in the high right frontal lobe as well. There is an old lacunar infar ct in the right frontal periventricular white matter. There is moderate diffuse cerebral atrophy. There are scattered areas of increased T2/FLAIR signal in the brain parenchyma. This is a nonspecifi c finding, but most likely represents moderate small vessel ischemic changes. There is no abnormal e nhancement identified. The sella and suprasellar cistern appear within normal limits. The brainstem and posterior fossa ar e normal in configuration. The orbital soft tissue contents are unremarkable. There is mucosal thickening in the maxillary sinu ses. IMPRESSION: 1. Left frontal parietal parenchymal hematoma, 3.4 x 3.9 x 3.1 cm. This is similar from recent CT examination. There is mild adjacent edema, with minimal midline shift to the right, 2 mm. There is no associated enhancing lesion identified. The hemorrhage may be related to hypertension or injury . Evidence for acute infarct is not identified. Contrast enhanced follow-up after resolution of th e current blood products is suggested to exclude underlying lesion. 2. Evidence of small old blood products in the right external capsule, right frontal anthony radiata , and high right frontal lobe, consistent with small old prior bleeds. These may be hypertensive or traumatic in etiology as well. 3. Old right frontal periventricular lacunar infarct. 4. Moderate age related cerebral volume loss and small vessel ischemic change. RPTAT: DD .Lit Landeros MD, Date Time Electronically viewed and signed by .Lit Landeros MD, on 09/06/2016 16:08 .T/
--- NOTE | 2016-09-06 19:41 | QN ---
Documentation Comment I reviewed follow-up CT which is not significantly changed. MRI does not show evidence of vascular malfomation or other underlying structural abnormality. MRI does show several small areas of old hemorrhage in other areas of the brain. These do not have classic appearance of cavernous malformations. Unless patient is thought to have had clearly longstanding poorly -controlled hypertension, would consider neurology consult to further assess for underlying pathology such as vasculitis or other systemic disease. SHAYNA GOLD MD Sep 06, 2016 19:41
[2016-09-06] MEDS: DOCUSATE SODIUM 100 MG CAP PO SCH (21:00)
[2016-09-06] MEDS: ONDANSETRON 4 MG INJ IV PRN (22:55)
[2016-09-07] VITALS (36 sets, daily range): BP systolic 120–177; BP diastolic 62–116; PULSE 70–112; RESP 11–34
[2016-09-07 05:08] LABS: ADD SCAN DIFF NO
[2016-09-07 05:09] LABS: BASOPHILS % 0.4 % (0.0-2.0); EOSINOPHILS % 0.1 % (0.0-7.0); HEMATOCRIT 42.5 % (37.0-47.0); HEMOGLOBIN 14.1 g/dl (12.0-16.0); LYMPHOCYTES # 1.4 10^3/ul (0.8-2.9); LYMPHOCYTES % 15.1 % (15.0-51.0); MEAN CORPUSCULAR HEMOGLOBIN 29.9 pg (29.0-33.0); MEAN CORPUSCULAR HGB CONC 33.2 g/dl (32.0-37.0); MEAN CORPUSCULAR VOLUME 90.2 fl (82.0-101.0); MEAN PLATELET VOLUME 10.8 fl (7.4-10.4); MONOCYTE # 0.7 10^3/ul (0.3-0.9); MONOCYTES % 7.7 % (0.0-11.0); NEUTROPHILS % 76.4 % (39.0-77.0); PLATELET COUNT 188 10^3/UL (140-415); RED BLOOD COUNT 4.71 10^6/ul (4.20-5.40); RED CELL DISTRIBUTION WIDTH 12.9 % (11.5-14.5); WHITE BLOOD COUNT 9.2 10^3/ul (4.8-10.8)
[2016-09-07 05:41] LABS: CALCIUM 9.6 mg/dl (8.4-10.2); CREATININE 0.67 mg/dl (0.44-1.00); POTASSIUM 3.1 mmol/L (3.5-5.1)
[2016-09-07] MEDS: PANTOPRAZOLE 40 MG INJ IV SCH (05:59)
[2016-09-07] MEDS ORDERED: POTASSIUM CHLORIDE 250 ML IVPB ONE (06:30)
[2016-09-07] MEDS: DOCUSATE SODIUM 100 MG CAP PO SCH ×2 (08:49→20:46)
--- NOTE | 2016-09-07 14:26 | RADRPT ---
PROCEDURE: CT Brain without contrast. CLINICAL INDICATION: History of intracranial hemorrhage. TECHNIQUE: A CT of the brain without contrast was performed utilizing axial sections from the skul l base through the vertex. The patient was scanned without intravenous contrast enhancement. [place] l and coronal reformatted images were obtained using the data from the axial images. Total exam DLP is 720.23 mGy-cm. CTDIvol is 42.69 mGy. One or more of the following dose reduction techniques we re used: Automated exposure control, adjustment of the mA and/or kV according to patient size, use o f iterative reconstruction technique. COMPARISON: CT scan of the brain dated 09/06/2016. FINDINGS: The fourth ventricle is normal in size. The third and lateral ventricles are normal in size and conf iguration. A hematoma is identified in the dorsal left frontal lobe measuring approximately 3.1 x 3. 0 x 5.5 cm in AP, transverse, and cranial caudal dimensions, similar to the prior study. There is lua rrounding vasogenic edema with no evidence of subfalcine or transtentorial herniation noted. There a re chronic small vessel ischemic changes in the periventricular white matter tracts adjacent to the lateral ventricles with mild cerebral atrophy, unchanged. The visible portions of the globes and extraocular muscles are normal. The paranasal sinuses are arleen ar. The mastoid air cells and internal auditory canals are normal. The bony calvarium is intact. The re are vascular calcifications in the cavernous and supracavernous portions of the internal carotid arteries. IMPRESSION: 1. Left posterior frontal hematoma, similar to the prior study. 2. No new intracranial hemorrhage. RPTAT: QQ .Jayy Mccullough MD, MD Date Time Electronically viewed and signed by .Jayy Mccullough MD, on 09/07/2016 14:26 .R/
[2016-09-07] MEDS: hydrALAzine 20 MG INJ IV PRN (15:02)
--- NOTE | 2016-09-07 16:22 | PN ---
Date/Time of Note Date/Time of Note DATE: 09/07/16 TIME: 16:17 Assessment/Plan VTE Prophylaxis VTE Prophylaxis Intervention: SCD's Lines/Catheters [facility] Saline Lock Urinary Cath still in place: No Assessment/Plan Chief Complaint/Hosp Course 1. 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 Hypertension: Will start Norvasc and hold home Atenelol 3. DVT and GI prophylaxis: SCDs, Protonix (refrain from using any pharmacologic DVT prophylaxis secondary to intracranial hemorrhage) Problems: Subjective 24 Hr Interval Summary Constitutional: no complaints Exam/Review of Systems Vital Signs Vitals Vital Signs Date Time Temp Pulse Resp B/P Pulse Ox O2 Delivery O2 Flow Rate FiO2 09/07/16 12:00 97.7 70 15 144/93 99 Room Air 09/06/16 06:08 2.0 Intake and Output 09/06/16 09/06/16 09/07/16 15:00 23:00 07:00 Intake Total 0 ml 0 ml Output Total 1500 ml 410 ml 240 ml Balance -1500 ml -410 ml -240 ml Exam Constitutional: alert Respiratory: clear to auscultation Cardiovascular: regular rate and rhythm Gastrointestinal: soft, No distended Musculoskeletal: nl extremities to inspection Results Result Diagram: 09/07/16 0436 09/07/16 0436 Results 24 hrs Laboratory Tests Test 09/07/16 04:36 White Blood Count 9.2 # Red Blood Count 4.71 Hemoglobin 14.1 Hematocrit 42.5 Mean Corpuscular Volume 90.2 Mean Corpuscular Hemoglobin 29.9 Mean Corpuscular Hemoglobin Concent 33.2 Red Cell Distribution Width 12.9 Platelet Count 188 Mean Platelet Volume 10.8 H Neutrophils % 76.4 Lymphocytes % 15.1 Monocytes % 7.7 Eosinophils % 0.1 Basophils % 0.4 Nucleated Red Blood Cells % 0.0 Neutrophils # 7.0 Lymphocytes # 1.4 Monocytes # 0.7 Eosinophils # 0.0 Basophils # 0.0 Nucleated Red Blood Cells # 0.0 Sodium Level 134 L Potassium Level 3.1 L Chloride Level 105 Carbon Dioxide Level 26 Anion Gap 6 L Blood Urea Nitrogen 14 Creatinine 0.67 Glucose Level 100 Calcium Level 9.6 Medications Medications Current Medications Ondansetron HCl (Zofran Inj) 4 mg Q6H PRN IV NAUSEA AND/OR VOMITING Last administered on 09/06/16 22:55; Admin Dose 4 MG; Start 09/06/16 at 07:30 Acetaminophen (Tylenol Supp) 650 mg Q4H PRN [place] PAIN LEVEL 1-3 OR FEVER; Start 09/06/16 at 07:30 Pantoprazole (Protonix Iv) 40 mg DAILY@06 IV Last administered on 09/07/16 05: 59; Admin Dose 40 MG; Start 09/07/16 at 06:00 Labetalol HCl (Labetalol) 10 mg Q10M PRN IV ELEVATED BLOOD PRESSURE; Start at 07:30 Acetaminophen (Tylenol Tab) 650 mg Q4H PRN PO TEMP GREATER THAN 99.6F; Start at 07:30 Docusate Sodium (Colace) 100 mg BID PO Last administered on 09/07/16 08:49; Admin Dose 100 MG; Start 09/06/16 at 21:00 Hydralazine HCl (Apresoline) 10 mg Q6H PRN IV SBP ABOVE 165 Last administered on 09/07/16 15:02; Admin Dose 10 MG; Start 09/06/16 at 12:00 SELAM BARRIOS Sep 07, 2016 16:22
[2016-09-07] MEDS: AMLODIPINE 5 MG TAB PO SCH (16:49)
[2016-09-07 19:12] LABS: CALCIUM 9.6 mg/dl (8.4-10.2); CREATININE 0.62 mg/dl (0.44-1.00); POTASSIUM 3.8 mmol/L (3.5-5.1)
[2016-09-07 19:20] LABS: HOMOCYSTEINE - CARDIOVASCULAR 7.9 umol/L (<10.4)
[2016-09-07] MEDS: ONDANSETRON 4 MG INJ IV PRN (21:53)
[2016-09-08] VITALS (13 sets, daily range): BP systolic 143–185; BP diastolic 71–97; PULSE 78–101; RESP 16–18
[2016-09-08] MEDS: PANTOPRAZOLE 40 MG INJ IV SCH (06:11)
[2016-09-08 06:48] LABS: ADD SCAN DIFF NO; BASOPHILS % 0.5 % (0.0-2.0); HEMATOCRIT 43.2 % (37.0-47.0); HEMOGLOBIN 14.1 g/dl (12.0-16.0); LYMPHOCYTES # 1.4 10^3/ul (0.8-2.9); LYMPHOCYTES % 15.9 % (15.0-51.0); MEAN CORPUSCULAR HEMOGLOBIN 29.6 pg (29.0-33.0); MEAN CORPUSCULAR HGB CONC 32.6 g/dl (32.0-37.0); MEAN CORPUSCULAR VOLUME 90.6 fl (82.0-101.0); MEAN PLATELET VOLUME 10.6 fl (7.4-10.4); MONOCYTE # 0.5 10^3/ul (0.3-0.9); MONOCYTES % 5.7 % (0.0-11.0); NEUTROPHIL # 6.8 10^3/ul (1.6-7.5); NEUTROPHILS % 77.6 % (39.0-77.0); PLATELET COUNT 193 10^3/UL (140-415); RED BLOOD COUNT 4.77 10^6/ul (4.20-5.40); RED CELL DISTRIBUTION WIDTH 13.4 % (11.5-14.5); WHITE BLOOD COUNT 8.7 10^3/ul (4.8-10.8)
[2016-09-08 07:24] LABS: CALCIUM 9.8 mg/dl (8.4-10.2); CREATININE 0.66 mg/dl (0.44-1.00); MAGNESIUM 2.2 mg/dl (1.7-2.5); PHOSPHORUS 2.8 mg/dl (2.5-4.9); POTASSIUM 3.6 mmol/L (3.5-5.1)
[2016-09-08] MEDS: AMLODIPINE 5 MG TAB PO SCH (08:06)
[2016-09-08] MEDS: DOCUSATE SODIUM 100 MG CAP PO SCH ×2 (08:06→21:48)
[2016-09-08] MEDS: hydrALAzine 20 MG INJ IV PRN (08:07)
--- NOTE | 2016-09-08 09:54 | CONS ---
Date/Time of Note Date/Time of Note DATE: 09/08/16 TIME: 09:49 Assessment/Plan Assessment/Plan Chief Complaint/Hosp Course Patient seen in ER. History obtained from chart and from MDs as patient is unable to provide history. Apparently, at about 2AM, she had sudden onset of speech difficulty and R hand weakness. No seizure or syncope. No trauma. No precipitating event. Denies headache or any pain. This happened while she was washing and it was noted by family. She was brought to ER for evaluation. CT done. She was noted to be hypertensive with SBP > 200. At the current time, she is limited in communication, but she does seem to nod appropriately to simple questions. She is R handed and attempts to write with her L hand to communicate as well, but this in not intelligible. No history of stroke or other neurological problems. Does have history of HTN. Do not know if this is well-treated. Problems: (1) Intracranial hemorrhage Comment: She is out of ICU and mobilizing. Doing OK as expected. 1. Continue PT/OT/speech swallowing Rx - she clearly requires all of these 2. BP control as per parameters. 3. No anticoagulants or platelet agents. 4. As per neurology, no anticonvulsants. 5. She will require repeat MRI +/- contrast in 6-8 weeks. Consultation Date/Type/Reason Admit Date/Time Sep 06, 2016 at 05:14 Initial Consult Date 09/06/16 Type of Consultation: Neurosurgery Referring Provider: ALNIE POWELL 24 HR Interval Summary Free Text/Dictation She has been transferred from ICU. On PO BP meds and tolerating POs. Apparently has been ambulatory with PT. Subjective hx not possible: pt non-verbal Exam/Review of Systems Vital Signs Vitals Vital Signs Date Time Temp Pulse Resp B/P Pulse Ox O2 Delivery O2 Flow Rate FiO2 09/08/16 08:18 92 09/08/16 08:02 99.6 16 185/97 98 09/07/16 17:45 Room Air 09/06/16 06:08 2.0 Intake and Output 09/07/16 09/07/16 09/08/16 15:00 23:00 07:00 Intake Total 510.0 ml 60 ml 240 ml Output Total 370 ml 100 ml 800 ml Balance 140.0 ml -40 ml -560 ml Exam Constitutional: alert, non-verbal, No distress Eyes: PERRL Neurological: other (nods to questions, no vocalizations; R central facial weakness, mild; RUE monoplegia, but she is not cooperative to detailed exam) Results Yesterday CT brain stable. Result Diagram: 09/08/1660409/08/16 06 Results 24 hrs Laboratory Tests Test 09/07/16 18:15 09/08/16 06:05 Sodium Level 144 145 H Potassium Level 3.8 3.6 Chloride Level 105 105 Carbon Dioxide Level 24 23 Anion Gap 19 H 21 H Blood Urea Nitrogen 14 15 Creatinine 0.62 0.66 Glucose Level 110 95 Calcium Level 9.6 9.8 White Blood Count 8.7 Red Blood Count 4.77 Hemoglobin 14.1 Hematocrit 43.2 Mean Corpuscular Volume 90.6 Mean Corpuscular Hemoglobin 29.6 Mean Corpuscular Hemoglobin Concent 32.6 Red Cell Distribution Width 13.4 Platelet Count 193 Mean Platelet Volume 10.6 H Neutrophils % 77.6 H Lymphocytes % 15.9 Monocytes % 5.7 Eosinophils % 0.0 Basophils % 0.5 Nucleated Red Blood Cells % 0.0 Neutrophils # 6.8 Lymphocytes # 1.4 Monocytes # 0.5 Eosinophils # 0.0 Basophils # 0.0 Nucleated Red Blood Cells # 0.0 Phosphorus Level 2.8 Magnesium Level 2.2 Medications Medications Current Medications Ondansetron HCl (Zofran Inj) 4 mg Q6H PRN IV NAUSEA AND/OR VOMITING Last administered on 09/07/16 21:53; Admin Dose 4 MG; Start 09/06/16 at 07:30 Acetaminophen (Tylenol Supp) 650 mg Q4H PRN [place] PAIN LEVEL 1-3 OR FEVER; Start 09/06/16 at 07:30 Pantoprazole (Protonix Iv) 40 mg DAILY@06 IV Last administered on 09/08/16 06: 11; Admin Dose 40 MG; Start 09/07/16 at 06:00 Labetalol HCl (Labetalol) 10 mg Q10M PRN IV ELEVATED BLOOD PRESSURE; Start at 07:30 Acetaminophen (Tylenol Tab) 650 mg Q4H PRN PO TEMP GREATER THAN 99.6F; Start at 07:30 Docusate Sodium (Colace) 100 mg BID PO Last administered on 09/08/16 08:06; Admin Dose 100 MG; Start 09/06/16 at 21:00 Hydralazine HCl (Apresoline) 10 mg Q6H PRN IV SBP ABOVE 165 Last administered on 09/08/16 08:07; Admin Dose 10 MG; Start 09/06/16 at 12:00 Amlodipine Besylate (Norvasc) 5 mg DAILY PO Last administered on 09/08/16 08: 06; Admin Dose 5 MG; Start 09/07/16 at 16:30 SHAYNA GOLD MD Sep 08, 2016 09:54
--- NOTE | 2016-09-08 12:54 | PN ---
Date/Time of Note Date/Time of Note DATE: 09/08/16 TIME: 12:52 Assessment/Plan VTE Prophylaxis VTE Prophylaxis Intervention: other Lines/Catheters IV Catheter Type (from [facility]): Saline Lock Urinary Cath still in place: No Assessment/Plan Problems: (1) Hemorrhagic stroke Status: Acute Comment: Neurosurgery and neurology are following the patient. The somewhat atypical location for hemorrhagic CVA. Will control her blood pressure but in the meantime I will also check some serologies to make sure there is nothing more interesting going on (2) Right arm weakness Status: Acute Comment: Physical therapy will be required she will need placement Subjective 24 Hr Interval Summary Free Text/Dictation Patient at this point is marginally verbal and appears very tired. Exam/Review of Systems Vital Signs Vitals Vital Signs Date Time Temp Pulse Resp B/P Pulse Ox O2 Delivery O2 Flow Rate FiO2 09/08/16 12:30 98.1 97 17 143/83 99 09/07/16 17:45 Room Air 09/06/16 06:08 2.0 Intake and Output 09/07/16 09/07/16 09/08/16 15:00 23:00 07:00 Intake Total 510.0 ml 60 ml 240 ml Output Total 370 ml 100 ml 800 ml Balance 140.0 ml -40 ml -560 ml Exam Friends at bedside report that she is tired out from having gone through extensive physical therapy a few minutes ago Constitutional: alert, non-verbal Neck: non-tender, supple Respiratory: clear to auscultation, normal air movement Cardiovascular: nl pulses, regular rate and rhythm Gastrointestinal: nl liver, spleen, non-tender, soft Neurological: other (Minimal usage of the right upper extremity approximately 3 out of 5 remaining extremities work well) Results Result Diagram: 09/08/1660409/08/16604 Results 24 hrs Laboratory Tests Test 09/07/16 18:15 09/08/16 06:05 Sodium Level 144 145 H Potassium Level 3.8 3.6 Chloride Level 105 105 Carbon Dioxide Level 24 23 Anion Gap 19 H 21 H Blood Urea Nitrogen 14 15 Creatinine 0.62 0.66 Glucose Level 110 95 Calcium Level 9.6 9.8 White Blood Count 8.7 Red Blood Count 4.77 Hemoglobin 14.1 Hematocrit 43.2 Mean Corpuscular Volume 90.6 Mean Corpuscular Hemoglobin 29.6 Mean Corpuscular Hemoglobin Concent 32.6 Red Cell Distribution Width 13.4 Platelet Count 193 Mean Platelet Volume 10.6 H Neutrophils % 77.6 H Lymphocytes % 15.9 Monocytes % 5.7 Eosinophils % 0.0 Basophils % 0.5 Nucleated Red Blood Cells % 0.0 Neutrophils # 6.8 Lymphocytes # 1.4 Monocytes # 0.5 Eosinophils # 0.0 Basophils # 0.0 Nucleated Red Blood Cells # 0.0 Phosphorus Level 2.8 Magnesium Level 2.2 Medications Medications Current Medications Ondansetron HCl (Zofran Inj) 4 mg Q6H PRN IV NAUSEA AND/OR VOMITING Last administered on 09/07/16 21:53; Admin Dose 4 MG; Start 09/06/16 at 07:30 Acetaminophen (Tylenol Supp) 650 mg Q4H PRN [place] PAIN LEVEL 1-3 OR FEVER; Start 09/06/16 at 07:30 Pantoprazole (Protonix Iv) 40 mg DAILY@06 IV Last administered on 09/08/16 06: 11; Admin Dose 40 MG; Start 09/07/16 at 06:00 Labetalol HCl (Labetalol) 10 mg Q10M PRN IV ELEVATED BLOOD PRESSURE; Start at 07:30 Acetaminophen (Tylenol Tab) 650 mg Q4H PRN PO TEMP GREATER THAN 99.6F; Start at 07:30 Docusate Sodium (Colace) 100 mg BID PO Last administered on 09/08/16 08:06; Admin Dose 100 MG; Start 09/06/16 at 21:00 Hydralazine HCl (Apresoline) 10 mg Q6H PRN IV SBP ABOVE 165 Last administered on 09/08/16 08:07; Admin Dose 10 MG; Start 09/06/16 at 12:00 Amlodipine Besylate (Norvasc) 5 mg DAILY PO Last administered on 09/08/16 08: 06; Admin Dose 5 MG; Start 09/07/16 at 16:30 Atorvastatin Calcium (Lipitor) 10 mg HS PO ; Start 09/08/16 at 21:00; Status TERESA RIOS MD Sep 08, 2016 12:53
[2016-09-08] MEDS: ATORVASTATIN 10 MG TAB PO SCH (21:45)
[2016-09-09] VITALS (13 sets, daily range): BP systolic 131–158; BP diastolic 77–82; PULSE 66–83; RESP 17–19
[2016-09-09] MEDS: PANTOPRAZOLE 40 MG INJ IV SCH (05:58)
[2016-09-09] MEDS: DOCUSATE SODIUM 100 MG CAP PO SCH ×2 (09:01→21:15)
[2016-09-09] MEDS: AMLODIPINE 5 MG TAB PO SCH (09:01)
--- NOTE | 2016-09-09 12:18 | PN ---
Date/Time of Note Date/Time of Note DATE: 09/09/16 TIME: 12:16 Assessment/Plan VTE Prophylaxis VTE Prophylaxis Intervention: contraindicated Lines/Catheters [facility] Peripheral IV Urinary Cath still in place: No Assessment/Plan Problems: (1) Hepatitis B surface antigen positive Status: Chronic Comment: Noted. Blood and body fluid precautions (2) Intracranial hemorrhage Status: Acute Comment: There does not appear to be any separate causation of this. She will need to go through rehab. This is going to be a long-term rehabilitation process (3) Right arm weakness Status: Acute Comment: As above. She is able to ambulate however her usage of the right upper extremity is profoundly limited at this moment Subjective 24 Hr Interval Summary Free Text/Dictation Patient's [id number] she only speaks Mongolian Constitutional: no complaints Respiratory: no complaints Cardiovascular: no complaints Neurologic: no complaints (No changes) Exam/Review of Systems Vital Signs Vitals Vital Signs Date Time Temp Pulse Resp B/P Pulse Ox O2 Delivery O2 Flow Rate FiO2 09/09/16 08:37 66 09/09/16 07:18 98.0 18 139/82 98 09/07/16 17:45 Room Air 09/06/16 06:08 2.0 Intake and Output 09/08/16 09/08/16 09/09/16 15:00 23:00 07:00 Intake Total 480 ml Output Total 400 ml Balance 80 ml Exam Feeding herself lunch using her left hand Constitutional: alert, oriented Neck: non-tender, supple Respiratory: clear to auscultation, normal air movement Gastrointestinal: nl liver, spleen, soft Neurological: other (No change flaccid paralysis right upper extremity) Results Result Diagram: 09/08/1660409/08/16604 Results 24 hrs Laboratory Tests Test 09/08/16 14:55 Rapid Plasma Reagin NONREACTIVE Medications Medications Current Medications Ondansetron HCl (Zofran Inj) 4 mg Q6H PRN IV NAUSEA AND/OR VOMITING Last administered on 09/07/16t 21:53; Admin Dose 4 MG; Start 09/06/16 at 07:30 Acetaminophen (Tylenol Supp) 650 mg Q4H PRN [place] PAIN LEVEL 1-3 OR FEVER; Start 09/06/16 at 07:30 Pantoprazole (Protonix Iv) 40 mg DAILY@06 IV Last administered on 09/09/16 05: 58; Admin Dose 40 MG; Start 09/07/16 at 06:00 Labetalol HCl (Labetalol) 10 mg Q10M PRN IV ELEVATED BLOOD PRESSURE; Start at 07:30 Acetaminophen (Tylenol Tab) 650 mg Q4H PRN PO TEMP GREATER THAN 99.6F; Start at 07:30 Docusate Sodium (Colace) 100 mg BID PO Last administered on 09/09/16 09:01; Admin Dose 100 MG; Start 09/06/16 at 21:00 Hydralazine HCl (Apresoline) 10 mg Q6H PRN IV SBP ABOVE 165 Last administered on 09/08/16 08:07; Admin Dose 10 MG; Start 09/06/16 at 12:00 Amlodipine Besylate (Norvasc) 5 mg DAILY PO Last administered on 09/09/16 09: 01; Admin Dose 5 MG; Start 09/07/16 at 16:30 Atorvastatin Calcium (Lipitor) 10 mg HS PO Last administered on 09/08/16 21:45 ; Admin Dose 10 MG; Start 09/08/16 at 21:00 TERESA SOTELO MD Sep 09, 2016 12:18
[2016-09-09] MEDS: ATORVASTATIN 10 MG TAB PO SCH (21:15)
[2016-09-10] VITALS (12 sets, daily range): BP systolic 138–150; BP diastolic 82–93; PULSE 73–93; RESP 18
[2016-09-10] MEDS: PANTOPRAZOLE 40 MG INJ IV SCH (05:34)
[2016-09-10] MEDS: AMLODIPINE 5 MG TAB PO SCH (09:48)
[2016-09-10] MEDS: DOCUSATE SODIUM 100 MG CAP PO SCH ×2 (09:48→20:16)
--- NOTE | 2016-09-10 20:01 | PN ---
Date/Time of Note Date/Time of Note DATE: 09/10/16 TIME: 19:59 Assessment/Plan VTE Prophylaxis VTE Prophylaxis Intervention: SCD's Lines/Catheters IV Catheter Type (from [facility]): Peripheral IV Urinary Cath still in place: No Assessment/Plan Chief Complaint/Hosp Course Patient is a 60-year-old female who presented to [facility] for acute onset right arm weakness found to have left frontal parenchymal hemorrhage. Currently being evaluated for acute rehab placement. Assessment Left frontal parenchymal hemorrhage, stable, Left frontal CVA right upper extremity weakness, secondary to above hemorrhage Hypertension Hyponatremia mild Dyslipidemia mild Electrolyte derangement Positive hepatitis B surface antigen Plan -Rehab placement -Continue medications as ordered -Repeat MRI with and without contrast in 6-8 weeks per neurosurgery -Confirmatory hepatitis B test pending Judson Dwyer DO Problems: Subjective 24 Hr Interval Summary Free Text/Dictation no new complaints Exam/Review of Systems Vital Signs Vitals Vital Signs Date Time Temp Pulse Resp B/P Pulse Ox O2 Delivery O2 Flow Rate FiO2 09/10/16 16:10 73 09/10/16 15:35 98.1 18 138/92 99 09/07/16 17:45 Room Air Intake and Output 09/09/16 09/09/16 09/10/16 15:00 23:00 07:00 Intake Total 750 ml Output Total 1300 ml Balance -550 ml Exam Physical exam General: Patient is laying in bed and answers questions questions by moaning and nodding head. Mentation: Patient is alert and oriented 4, Head: Normocephalic atraumatic Eyes: EOMI, pupils reactive to light Neck: Supple, nontender, midline Respiratory: Clear to auscultation bilaterally Cardiovascular: regular rate, no obvious murmurs Gastrointestinal: non-tender to palpation, bowel sounds heard. Neurological: flaccid R UE, full sensation in all extremities Skin: No new skin lesions Results Result Diagram: 09/08/1660409/08/16604 Medications Medications Current Medications Ondansetron HCl (Zofran Inj) 4 mg Q6H PRN IV NAUSEA AND/OR VOMITING Last administered on 09/07/16t 21:53; Admin Dose 4 MG; Start 09/06/16 at 07:30 Acetaminophen (Tylenol Supp) 650 mg Q4H PRN [place] PAIN LEVEL 1-3 OR FEVER; Start 09/06/16 at 07:30 Pantoprazole (Protonix Iv) 40 mg DAILY@06 IV Last administered on 09/10/16 05: 34; Admin Dose 40 MG; Start 09/07/16 at 06:00 Labetalol HCl (Labetalol) 10 mg Q10M PRN IV ELEVATED BLOOD PRESSURE; Start at 07:30 Acetaminophen (Tylenol Tab) 650 mg Q4H PRN PO TEMP GREATER THAN 99.6F; Start at 07:30 Docusate Sodium (Colace) 100 mg BID PO Last administered on 09/10/16 09:48; Admin Dose 100 MG; Start 09/06/16 at 21:00 Hydralazine HCl (Apresoline) 10 mg Q6H PRN IV SBP ABOVE 165 Last administered on 09/08/16 08:07; Admin Dose 10 MG; Start 09/06/16 at 12:00 Amlodipine Besylate (Norvasc) 5 mg DAILY PO Last administered on 09/10/16 09: 48; Admin Dose 5 MG; Start 09/07/16 at 16:30 Atorvastatin Calcium (Lipitor) 10 mg HS PO Last administered on 09/09/16 21:15 ; Admin Dose 10 MG; Start 09/08/16 at 21:00 JUDSON DWYER Sep 10, 2016 20:00
[2016-09-10] MEDS: ATORVASTATIN 10 MG TAB PO SCH (20:16)
[2016-09-11] VITALS (13 sets, daily range): BP systolic 129–155; BP diastolic 74–94; PULSE 66–114; RESP 16–20
[2016-09-11] MEDS: PANTOPRAZOLE 40 MG INJ IV SCH (05:10)
[2016-09-11] MEDS: AMLODIPINE 5 MG TAB PO SCH (09:20)
[2016-09-11] MEDS: DOCUSATE SODIUM 100 MG CAP PO SCH ×2 (09:20→21:00)
[2016-09-11] MEDS ORDERED: POLYETHYLENE GLYCOL 17 GM PACKET PO PRN (15:30)
--- NOTE | 2016-09-11 16:44 | PN ---
Date/Time of Note Date/Time of Note DATE: 09/11/16 TIME: 16:39 Assessment/Plan VTE Prophylaxis VTE Prophylaxis Intervention: ambulation Lines/Catheters IV Catheter Type (from [facility]): Saline Lock Urinary Cath still in place: No Assessment/Plan Chief Complaint/Hosp Course Patient is a 60-year-old female who presented to [facility] for acute onset right arm weakness found to have left frontal parenchymal hemorrhage. Currently being evaluated for acute rehab placement. 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 -dispo, placement Judson Dwyer DO Problems: Subjective 24 Hr Interval Summary Free Text/Dictation no acute complaints Exam/Review of Systems Vital Signs Vitals Vital Signs Date Time Temp Pulse Resp B/P Pulse Ox O2 Delivery O2 Flow Rate FiO2 09/11/16 16:10 96 09/11/16 15:34 98.7 18 129/74 96 09/07/16 17:45 Room Air Intake and Output 09/10/16 09/10/16 09/11/16 15:00 23:00 07:00 Intake Total 720 ml Output Total 1000 ml Balance -280 ml Exam Physical exam General: Patient is laying in bed and answers questions questions by moaning and nodding head. Mentation: Patient is alert and oriented 4, Head: Normocephalic atraumatic Eyes: EOMI, pupils reactive to light Neck: Supple, nontender, midline Respiratory: Clear to auscultation bilaterally Cardiovascular: regular rate, no obvious murmurs Gastrointestinal: non-tender to palpation, bowel sounds heard. Neurological: flaccid R UE, full sensation in all extremities Skin: No new skin lesions Results Result Diagram: 09/08/1660409/08/16604 Medications Medications Current Medications Ondansetron HCl (Zofran Inj) 4 mg Q6H PRN IV NAUSEA AND/OR VOMITING Last administered on 09/07/16t 21:53; Admin Dose 4 MG; Start 09/06/16 at 07:30 Acetaminophen (Tylenol Supp) 650 mg Q4H PRN [place] PAIN LEVEL 1-3 OR FEVER; Start 09/06/16 at 07:30 Pantoprazole (Protonix Iv) 40 mg DAILY@06 IV Last administered on 09/11/16 05: 10; Admin Dose 40 MG; Start 09/07/16 at 06:00 Labetalol HCl (Labetalol) 10 mg Q10M PRN IV ELEVATED BLOOD PRESSURE; Start at 07:30 Acetaminophen (Tylenol Tab) 650 mg Q4H PRN PO TEMP GREATER THAN 99.6F; Start at 07:30 Docusate Sodium (Colace) 100 mg BID PO Last administered on 09/11/16 09:20; Admin Dose 100 MG; Start 09/06/16 at 21:00 Hydralazine HCl (Apresoline) 10 mg Q6H PRN IV SBP ABOVE 165 Last administered on 09/08/16 08:07; Admin Dose 10 MG; Start 09/06/16 at 12:00 Amlodipine Besylate (Norvasc) 5 mg DAILY PO Last administered on 09/11/16 09: 20; Admin Dose 5 MG; Start 09/07/16 at 16:30 Atorvastatin Calcium (Lipitor) 10 mg HS PO Last administered on 09/10/16 20:16 ; Admin Dose 10 MG; Start 09/08/16 at 21:00 Polyethylene Glycol (Miralax) 17 gm DAILY PRN PO CONSTIPATION Last administered on 09/11/16 16:35; Admin Dose 17 GM; Start 09/11/16 at 15:30 JUDSON DWYER Sep 11, 2016 16:43
[2016-09-11 19:05] LABS: ALBUMIN 4.1 g/dl (3.3-4.9); CALCIUM 9.7 mg/dl (8.4-10.2); CREATININE 0.65 mg/dl (0.44-1.00); PHOSPHORUS 4.4 mg/dl (2.5-4.9); POTASSIUM 4.4 mmol/L (3.5-5.1)
[2016-09-11] MEDS: ATORVASTATIN 10 MG TAB PO SCH (21:00)
[2016-09-12] VITALS (11 sets, daily range): BP systolic 125–154; BP diastolic 65–86; PULSE 69–88; RESP 17–19
[2016-09-12] MEDS: PANTOPRAZOLE 40 MG INJ IV SCH (05:40)
[2016-09-12 07:34] LABS: ALBUMIN 3.6 g/dl (3.3-4.9); BILIRUBIN,INDIRECT 0.8 mg/dl (0-1.1); BILIRUBIN,TOTAL 0.8 mg/dl (0.2-1.3); TOTAL PROTEIN 6.1 g/dl (6.1-8.1)
[2016-09-12] MEDS: AMLODIPINE 5 MG TAB PO SCH (08:34)
[2016-09-12] MEDS: DOCUSATE SODIUM 100 MG CAP PO SCH ×2 (08:34→20:33)
--- NOTE | 2016-09-12 14:57 | PN ---
Date/Time of Note Date/Time of Note DATE: 09/12/16 TIME: 14:55 Assessment/Plan VTE Prophylaxis VTE Prophylaxis Intervention: ambulation Lines/Catheters IV [facility]from [facility] Saline Lock Urinary Cath still in place: No Assessment/Plan Chief Complaint/Hosp Course Patient is a 60-year-old female who presented to [facility] for acute onset right arm weakness found to have left frontal parenchymal hemorrhage. Currently being evaluated for acute rehab placement. 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 -dispo, placement Judson Dwyer DO Problems: Subjective 24 Hr Interval Summary Free Text/Dictation no acute complaints Exam/Review of Systems Vital Signs Vitals Vital Signs Date Time Temp Pulse Resp B/P Pulse Ox O2 Delivery O2 Flow Rate FiO2 09/12/16 12:25 88 09/12/16 11:47 98.2 18 133/78 98 Intake and Output 09/11/16 09/11/16 09/12/16 15:00 23:00 07:00 Intake Total 1000 ml 550 ml Balance 1000 ml 550 ml Exam Physical exam General: Patient is laying in bed and answers questions questions by moaning and nodding head. Mentation: Patient is alert and oriented 4, Head: Normocephalic atraumatic Eyes: EOMI, pupils reactive to light Neck: Supple, nontender, midline Respiratory: Clear to auscultation bilaterally Cardiovascular: regular rate, no obvious murmurs Gastrointestinal: non-tender to palpation, bowel sounds heard. Neurological: flaccid R UE, full sensation in all extremities Skin: No new skin lesions Results Result Diagram: 09/08/16 0605 09/11/16 1828 Results 24 hrs Laboratory Tests Test 09/11/16 18:28 09/12/16 06:14 Sodium Level 141 Potassium Level 4.4 Chloride Level 100 Carbon Dioxide Level 28 Anion Gap 17 H Blood Urea Nitrogen 16 Creatinine 0.65 Glucose Level 131 Calcium Level 9.7 Phosphorus Level 4.4 Albumin 4.1 3.6 Magnesium Level 2.1 Total Bilirubin 0.8 Direct Bilirubin 0.00 Indirect Bilirubin 0.8 Aspartate Amino Transf (AST/SGOT) 31 Alanine Aminotransferase (ALT/SGPT) 40 Alkaline Phosphatase 55 Total Protein 6.1 Medications Medications Current Medications Ondansetron HCl (Zofran Inj) 4 mg Q6H PRN IV NAUSEA AND/OR VOMITING Last administered on 09/07/16 21:53; Admin Dose 4 MG; Start 09/06/16 at 07:30 Acetaminophen (Tylenol Supp) 650 mg Q4H PRN TN PAIN LEVEL 1-3 OR FEVER; Start 09/06/16 at 07:30 Pantoprazole (Protonix Iv) 40 mg DAILY@06 IV Last administered on 09/12/16 05: 40; Admin Dose 40 MG; Start 09/07/16 at 06:00 Labetalol HCl (Labetalol) 10 mg Q10M PRN IV ELEVATED BLOOD PRESSURE; Start at 07:30 Acetaminophen (Tylenol Tab) 650 mg Q4H PRN PO TEMP GREATER THAN 99.6F; Start at 07:30 Docusate Sodium (Colace) 100 mg BID PO Last administered on 09/12/16 08:34; Admin Dose 100 MG; Start 09/06/16 at 21:00 Hydralazine HCl (Apresoline) 10 mg Q6H PRN IV SBP ABOVE 165 Last administered on 09/08/16 08:07; Admin Dose 10 MG; Start 09/06/16 at 12:00 Amlodipine Besylate (Norvasc) 5 mg DAILY PO Last administered on 09/12/16 08: 34; Admin Dose 5 MG; Start 09/07/16 at 16:30 Atorvastatin Calcium (Lipitor) 10 mg HS PO Last administered on 09/11/16 21:00 ; Admin Dose 10 MG; Start 09/08/16 at 21:00 Polyethylene Glycol (Miralax) 17 gm DAILY PRN PO CONSTIPATION Last administered on 09/11/16 16:35; Admin Dose 17 GM; Start 09/11/16 at 15:30 JUDSON DWYER Sep 12, 2016 14:57
[2016-09-12] MEDS: ATORVASTATIN 10 MG TAB PO SCH (20:33)
[2016-09-13] VITALS (10 sets, daily range): BP systolic 130–149; BP diastolic 69–81; PULSE 67–92; RESP 18
[2016-09-13] MEDS: PANTOPRAZOLE 40 MG INJ IV SCH (06:43)
[2016-09-13] MEDS: DOCUSATE SODIUM 100 MG CAP PO SCH (08:31)
[2016-09-13] MEDS ORDERED: AMLODIPINE 5 MG TAB PO SCH (09:00)
--- NOTE | 2016-09-13 15:29 | DS ---
Date/Time of Note Date/Time of Note DATE: 09/13/16 TIME: 15:28 Discharge Summary Admission/Discharge Info Admit Date/Time Sep 06, 2016 at 05:14 Discharge Date/Time Patient Condition: Good Hx of Present Illness Chief complaint: Right arm weakness this 60-year-old female presents with acute onset of right arm weakness and inability to speak approximately 1 hour prior to arrival. She has no pain. This was noted by family who called. She has no history of stroke is not any blood thinners and her only medical problem is hypertension for which she takes an unknown medication once a day. Patient herself can follow commands and provide a history with yes and no answers. Above was obtained from the ED documentation prior to tele-neurology. Upon my examination, patient continues to have expressive aphasia. She however does understand and responds with head nodding and with writing. Her strength on the right side appears to be 4 out of 5 in bilateral upper and lower extremities compared to the left. This likely is improvement from her initial presentation when he was noted to be approximately 3 out of 5 as per the ED physician exam. Medications: See MAR Allergies: [facility] Hospital Course Assessment Left frontal parenchymal hemorrhage, stable, Left frontal CVA right upper extremity weakness, secondary to above hemorrhage Hypertension Hyponatremia mild Dyslipidemia mild Electrolyte derangement Positive hepatitis B surface antigen Patient is a 60-year-old female presents to [facility] for acute onset right arm weakness found to have left frontal parenchymal hemorrhage. No intervention was taken and patient continues to have right upper extremity weakness however no deficit in her lower extremity or her left extremity. Patient also is having difficulty speaking however does have speech capability. Patient does have a history of hypertension, however at this time it is unknown the exact cause of patient's hemorrhage. Patient did have episodes of elevated blood pressure, and amlodipine was started and increased to a total dose of 10 mg daily. Suggest titration of medication as needed. Neurosurgery did state that the patient did need a repeat MRI with and without contrast approximately 6 weeks from discharge. Patient also does have a positive hepatitis B surface antigen however liver enzymes are within normal limits, suggest GI follow-up and outpatient. Patient is safe for discharge to acute rehab for rehabilitation of her right upper extremity weakness. Judson Dwyer DO Home Meds Reported Medications Atenolol* (Atenolol*) 50 Mg Tablet, 50 MG PO DAILY, #30 TAB 09/06/16 Aspirin* (Aspirin* EC) 81 Mg Tablet., 81 MG PO DAILY, TAB 09/06/16 Aspirin* (Aspirin* EC) 81 Mg Tablet., 81 MG PO DAILY, TAB 09/06/16 Atenolol* (Atenolol*) 50 Mg Tablet, 50 MG PO DAILY, #30 TAB 09/06/16 Follow-up Plan f/u MRI with and without contrast in 6 weeks Primary Care Provider Not On Staff Doctor Time spent on discharge: > 30 minutes JUDSON DWYER Sep 13, 2016 15:29
[2016-09-13] MEDS ORDERED: ATOR10TA65 PO (15:31)
[2016-09-13] MEDS ORDERED: AMLO-145 PO (15:31)
--- NOTE | 2016-09-13 15:33 | PDOCDIS ---
Discharge Instructions CONDITION Patient Condition: Good HOME CARE INSTRUCTIONS: Special Diet: Cardiac/Pureed FOLLOW UP/APPOINTMENTS Follow-up Plan f/u with Dr. Augie Syed, neurosurgeon. Will need repeat MRI in 6-8 weeks with and without contrast per neurosurgeon FRANCISCO DWYER Sep 13, 2016 15:33
== END 2016-09-13 16:50 | DRG 65 ==
LOC: E/R 03:54 → ICU 05:14 → TEL 09-07 17:39
PROVIDERS: ADMIT Family Medicine; ATTEND Family Medicine
DX: I62.9 Nontraumatic intracranial hemorrhage, unspecified (principal); E87.1 Hypo-osmolality and hyponatremia; B19.10 Unspecified viral hepatitis B without hepatic coma; I10 Essential (primary) hypertension; G83.21 Monoplegia of upper limb affecting right dominant side; R47.01 Aphasia; E78.5 Hyperlipidemia, unspecified; R29.704 NIHSS score 4; I69.990 Apraxia following unspecified cerebrovascular disease
CPT/HCPCS: 70450; 70553; 71010; 80048; 80061; 80069; 80076; 80307; 81003; 82962; 83036; 83090; 83735; 84100; 84484; 85025; 85610; 85730; 86592; 86704; 86803; 87081; 87340; 92507; 92523; 92526; 92610; 93005; 93880; 96374; 97003; 97110; 97116; 97162; 97167; 97530; 97535; C9113; J0360; J2405; J3480; J7040

== ENCOUNTER 2016-09-13 11:36 | Inpatient (IN) | payer MEDICAID ==
[2016-09-12 17:30] VITALS: BP 139/74; PULSE 86; RESP 20; Ht 160 cm; Wt 54.1 kg
[~2016-09-13] VITALS: Ht 160 cm; Wt 54.1 kg
[~2016-09-13 11:36] MED LIST: ASPI-664 PO; ATEN50TA PO
[2016-09-13] MEDS ORDERED: AMLO-145 PO (15:31)
[2016-09-13] MEDS ORDERED: ATOR10TA65 PO (15:31)
[2016-09-13] MEDS ORDERED: ONDANSETRON 4 MG INJ IV PRN (18:30)
[2016-09-13] MEDS ORDERED: hydrALAzine 20 MG INJ IV PRN (18:30)
[2016-09-13 18:53] LABS: ADD UMIC YES; UR ASCORBIC ACID 20 mg/dL (NEGATIVE); UR BACTERIA FEW /HPF (NONE SEEN); UR BILIRUBIN (Dip) NEGATIVE (NEGATIVE); UR BLOOD (Dip) NEGATIVE (NEGATIVE); UR CLARITY CLEAR (CLEAR); UR COLOR YELLOW (YELLOW); UR GLUCOSE (Dip) NEGATIVE (NEGATIVE); UR KETONES (Dip) NEGATIVE (NEGATIVE); UR LEUKOCYTE ESTERASE (Dip) 1+ Leu/ul (NEGATIVE); UR NITRITE (Dip) NEGATIVE (NEGATIVE); UR RBC 1 /HPF (0-5); UR SPECIFIC GRAVITY (Dip) 1.015 (1.003-1.030); UR TOTAL PROTEIN (Dip) NEGATIVE (NEGATIVE); UR UROBILINOGEN (Dip) NEGATIVE (NEGATIVE)
[2016-09-13 20:36] VITALS: BP 146/80; RESP 18
[2016-09-13] MEDS: ATORVASTATIN 10 MG TAB PO SCH (20:55)
[2016-09-13] MEDS: DOCUSATE SODIUM 100 MG CAP PO SCH (20:58)
[2016-09-14 01:53] VITALS: BP 123/77; RESP 18
[2016-09-14 07:19] LABS: ADD SCAN DIFF NO
[2016-09-14 07:22] LABS: BASOPHIL # 0.1 10^3/ul (0.0-0.1); BASOPHILS % 0.9 % (0.0-2.0); EOSINOPHILS # 0.2 10^3/ul (0.0-0.5); HEMATOCRIT 42.5 % (37.0-47.0); HEMOGLOBIN 14.2 g/dl (12.0-16.0); LYMPHOCYTES # 2.2 10^3/ul (0.8-2.9); LYMPHOCYTES % 39.3 % (15.0-51.0); MEAN CORPUSCULAR HEMOGLOBIN 30.1 pg (29.0-33.0); MEAN CORPUSCULAR HGB CONC 33.4 g/dl (32.0-37.0); MEAN PLATELET VOLUME 10.6 fl (7.4-10.4); MONOCYTE # 0.5 10^3/ul (0.3-0.9); MONOCYTES % 8.6 % (0.0-11.0); NEUTROPHIL # 2.7 10^3/ul (1.6-7.5); PLATELET COUNT 232 10^3/UL (140-415); RED BLOOD COUNT 4.72 10^6/ul (4.20-5.40); RED CELL DISTRIBUTION WIDTH 12.3 % (11.5-14.5); WHITE BLOOD COUNT 5.7 10^3/ul (4.8-10.8)
[2016-09-14 07:30] VITALS: BP 145/78; RESP 18
[2016-09-14 07:52] LABS: CALCIUM 9.7 mg/dl (8.4-10.2); CREATININE 0.74 mg/dl (0.44-1.00)
[2016-09-14] MEDS: AMLODIPINE 10 MG TAB PO SCH (08:37)
[2016-09-14] MEDS: DOCUSATE SODIUM 100 MG CAP PO SCH ×2 (08:38→20:44)
--- NOTE | 2016-09-14 12:54 | CONS ---
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 Aphasia, dysphasia 2. Hypertension 3. Hyperlipidemia 4. Impairments in self-care and mobility and cognition Patient was admitted for conference of interdisciplinary acute rehab and is anticipated to tolerate 3 hours of daily therapy in divided doses for at least 5 out of 7 days a week. Treatment plan will include: 1. Physical therapy to focus on bed mobility transfers and household ambulation with goal of having patient reach supervised to modified independent level 2. Occupational therapy to focus on hygiene grooming dressing bathing and toileting activities with the goal of having patient reach supervised to modified independent level 3. Rehabilitation nursing for carryover of therapeutic interventions the goal of continent of bowel and bladder, patient and family education with regard to the aforementioned issues 4. Speech therapy for full cognitive assessment and retraining in addition to dysphasia management with the goal of having patient return to baseline cognition and meet nutritional needs by mouth Rehabilitation barrier: Dysphasia Intervention for barrier: Speech therapy Disposition:: Home with home health follow-up Estimated length of stay: 10 days Treatment plan has been reviewed with the patient patient is agreeable with the treatment plan and is anticipated to make reasonable goals in a reasonable period of time as outlined above. Consultation Date/Type/Reason Admit Date/Time Sep 13, 2016 at 17:52 Reason for Consultation Rehabilitation post admission physician evaluation Hx of Present Illness Patient is a pleasant 60-year-old female with a history of hypertension who is admitted with increased right-sided weakness, aphasia, and dysphagia. Workup did include a head CT which revealed 3 cm acute hemorrhage left frontoparietal region. Patient was evaluated by neurosurgery no need for surgical intervention. Patient noted to have significant dysphasia and placed on dysphasia diet patient with significant impairments in self-care and mobility and cognition as compared to baseline and has been cleared to transfer to the rehabilitation unit for conference of interdisciplinary rehab care Constitutional: No chills, No diaphoresis, No disoriented, No febrile, No improved, No no complaints, No other, No poor po, No requiring IVF, No requiring O2 Eyes: No discharge, No no complaints, No other, No pain, No redness, No visual change ENT: dysphagia Respiratory: No cough, No no complaints, No other, No pain, No pleuritic pain, No shortness of breath, No sputum, No wheezing Gastrointestinal: No blood, No constipation, No decreased appetite, No diarrhea , No flatus, No nausea, No no complaints, No other, No pain, No passing stool, No vomiting Past Medical History Hypertension Functional history: Prior to admission patient was independent self-care tasks and mobility Current functional status: Moderate assist I have reviewed the preadmission screen patient's current functional status is consistent with the preadmission screen Social history: Patient lives at home with roommate hopes to return home upon discharge. Past Surgical History Past Surgical Hx: no surgical history Social History Smoking Status: Never smoker Exam/Review of Systems Vital Signs Vitals Vital Signs Date Time Temp Pulse Resp B/P Pulse Ox O2 Delivery O2 Flow Rate FiO2 09/14/16 07:30 98.0 72 18 145/78 97 09/12/16 17:30 Room Air Intake and Output 09/13/16 09/13/16 09/14/16 15:00 23:00 07:00 Intake Total 240 ml Balance 240 ml Exam Neurologically the patient is awake and alert and able to follow simple one- step commands. Patient has notable expressive aphasia, but able to state basic needs. She demonstrates good strength in the left upper and lower extremity. She has 2- strength in the right upper externa antigravity strength in right lower. Impaired dynamic balance Head: No atraumatic, No hematomas, No lacerations, No normocephalic, No other Eyes: No EOMI, No PERRL, No fundi, disc, No icteric, No nl conjunctiva, No nl lids, No nl sclera, No other ENMT: No intubated, No mucosa pink and moist, No nl external ears & nose, No nl lips & teeth, No nl nasal mucosa & septum, No other, No tympanic membranes Cardiovascular: No S3, No S4, No bruits, No diastolic murmur, No edema, No gallop, No irregular rhythm, No jugular venous distention (JVD), No murmurs/ extra sounds, No nl pulses, No other, No regular rate and rhythm, No rub, No systolic murmur Gastrointestinal: No ascites, No bowel sounds, No distended, No firm, No hepatomegaly, No mass, No nl liver, spleen, No non-tender, No other, No rebound or guarding, No soft, No splenomegaly, No surgical scars, No tender Genitourinary - Female: No CMT, No CVA tenderness, No nl adnexae, No nl external genitalia, No other, No uterus Results Result Diagram: 09/14/16 0639 09/14/16 0639 Results 24 hrs Laboratory Tests Test 09/13/16 18:10 09/14/16 06:39 Urine Color YELLOW Urine Clarity CLEAR Urine pH 7.0 Urine Specific [place] 1.015 Urine Ketones NEGATIVE Urine Nitrite NEGATIVE Urine Bilirubin NEGATIVE Urine Urobilinogen NEGATIVE Urine Leukocyte Esterase 1+ H Urine Microscopic RBC 1 Urine Microscopic WBC 3 Urine Bacteria FEW A Urine Hemoglobin NEGATIVE Urine Glucose NEGATIVE Urine Total Protein NEGATIVE White Blood Count 5.7 # Red Blood Count 4.72 Hemoglobin 14.2 Hematocrit 42.5 Mean Corpuscular Volume 90.0 Mean Corpuscular Hemoglobin 30.1 Mean Corpuscular Hemoglobin Concent 33.4 Red Cell Distribution Width 12.3 Platelet Count 232 # Mean Platelet Volume 10.6 H Neutrophils % 47.0 Lymphocytes % 39.3 Monocytes % 8.6 Eosinophils % 4.0 Basophils % 0.9 Neutrophils # 2.7 Lymphocytes # 2.2 Monocytes # 0.5 Eosinophils # 0.2 Basophils # 0.1 Nucleated Red Blood Cells # 0.0 Sodium Level 144 Potassium Level 4.0 Chloride Level 100 Carbon Dioxide Level 29 Anion Gap 19 H Blood Urea Nitrogen 20 Creatinine 0.74 Glucose Level 88 Calcium Level 9.7 Medications Medications Current Medications Amlodipine Besylate (Norvasc) 10 mg DAILY PO Last administered on 09/14/16 08: 37; Admin Dose 10 MG; Start 09/14/16 at 09:00 Atorvastatin Calcium (Lipitor) 10 mg DAILY@21 PO Last administered on 20:55; Admin Dose 10 MG; Start 09/13/16 at 21:00 Docusate Sodium (Colace) 100 mg BID PO ; Start 09/13/16 at 21:00 Hydralazine HCl (Apresoline) 10 mg Q6H PRN IV SBP > 165; Start 09/13/16 at 18: 30 Ondansetron HCl (Zofran Inj) 4 mg Q6H PRN IV NAUSEA AND/OR VOMITING; Start at 18:30 KANU MOSQUEDA MD Sep 14, 2016 12:53
[2016-09-14 14:00] VITALS: BP 131/67; RESP 18
--- NOTE | 2016-09-14 18:49 | CONS ---
Date/Time of Note Date/Time of Note DATE: 09/14/16 TIME: 18:45 Assessment/Plan Assessment/Plan Chief Complaint/Hosp Course Acute hemorrhagic CVA.Left posterior frontal hematoma History of hypertension. Subsequent neurological deficits. Problems: Consultation Date/Type/Reason Admit Date/Time Sep 13, 2016 at 17:52 Date of Consultation: Sep 14, 2016 Type of Consultation: Internal medicine Hx of Present Illness Chief complaint: 60-year-old lady originally presented with right arm weakness. No prior history of CVAs. On admission found to have expressive aphasia with emergent evaluation by neurology. Found to have left frontoparietal hemorrhage. No history of head trauma or blood thinners. Past medical history does include hypertension. Patient's now been transferred to acute rehab for continued care. As above. Constitutional: No chills, No diaphoresis, No disoriented, No febrile, No improved, No no complaints, No other, No poor po, No requiring IVF, No requiring O2 Eyes: No discharge, No no complaints, No other, No pain, No redness, No visual change ENT: dysphagia Respiratory: No cough, No no complaints, No other, No pain, No pleuritic pain, No shortness of breath, No sputum, No wheezing Gastrointestinal: No blood, No constipation, No decreased appetite, No diarrhea , No flatus, No nausea, No no complaints, No other, No pain, No passing stool, No vomiting Past Medical History CVA Hypertension Past Surgical History Past Surgical Hx: no surgical history Social History Smoking Status: Never smoker Exam/Review of Systems Vital Signs Vitals Vital Signs Date Time Temp Pulse Resp B/P Pulse Ox O2 Delivery O2 Flow Rate FiO2 09/14/16 14:00 98.1 85 18 131/67 99 09/12/16 17:30 Room Air Intake and Output 09/13/16 09/13/16 09/14/16 14:59 22:59 06:59 Intake Total 240 ml Balance 240 ml Exam GENERAL: VITAL SIGNS: per chart NECK: Supple. No JVD or lymphadenopathy. CARDIAC EXAM: S1, S2. No added sounds or murmurs. CHEST: clear bilaterally, No added sounds, rales or wheezes ABDOMEN: Soft, nontender. No guarding or rebound. EXTREMITIES: No cyanosis, clubbing or edema. NEUROLOGIC: Upper extremity weakness. Expressive aphasia Results Result Diagram: 09/14/16 0639 09/14/16 0639 Results 24 hrs Laboratory Tests Test 09/14/16 06:39 White Blood Count 5.7 # Red Blood Count 4.72 Hemoglobin 14.2 Hematocrit 42.5 Mean Corpuscular Volume 90.0 Mean Corpuscular Hemoglobin 30.1 Mean Corpuscular Hemoglobin Concent 33.4 Red Cell Distribution Width 12.3 Platelet Count 232 # Mean Platelet Volume 10.6 H Neutrophils % 47.0 Lymphocytes % 39.3 Monocytes % 8.6 Eosinophils % 4.0 Basophils % 0.9 Neutrophils # 2.7 Lymphocytes # 2.2 Monocytes # 0.5 Eosinophils # 0.2 Basophils # 0.1 Nucleated Red Blood Cells # 0.0 Sodium Level 144 Potassium Level 4.0 Chloride Level 100 Carbon Dioxide Level 29 Anion Gap 19 H Blood Urea Nitrogen 20 Creatinine 0.74 Glucose Level 88 Calcium Level 9.7 Medications Medications Current Medications Amlodipine Besylate (Norvasc) 10 mg DAILY PO Last administered on 09/14/16 08: 37; Admin Dose 10 MG; Start 09/14/16 at 09:00 Atorvastatin Calcium (Lipitor) 10 mg DAILY@21 PO Last administered on 20:55; Admin Dose 10 MG; Start 09/13/16 at 21:00 Docusate Sodium (Colace) 100 mg BID PO ; Start 09/13/16 at 21:00 Hydralazine HCl (Apresoline) 10 mg Q6H PRN IV SBP > 165; Start 09/13/16 at 18: 30 Ondansetron HCl (Zofran Inj) 4 mg Q6H PRN IV NAUSEA AND/OR VOMITING; Start at 18:30 GALDINO BALDERAS MD, [facility] Sep 14, 2016 18:49
[2016-09-14 19:53] VITALS: BP 120/77; RESP 18
[2016-09-14] MEDS: ATORVASTATIN 10 MG TAB PO SCH (20:44)
[2016-09-15 02:00] VITALS: BP 125/70; RESP 18
[2016-09-15 07:41] VITALS: BP 147/79; RESP 18
[2016-09-15] MEDS: AMLODIPINE 10 MG TAB PO SCH (08:48)
[2016-09-15] MEDS: DOCUSATE SODIUM 100 MG CAP PO SCH ×2 (08:50→20:26)
--- NOTE | 2016-09-15 11:12 | PN ---
Date/Time of Note Date/Time of Note DATE: 09/15/16 TIME: 11:08 Assessment/Plan VTE Prophylaxis VTE Prophylaxis Intervention: ambulation, contraindicated, SCD's Lines/Catheters IV Catheter Type (from Nrs): Saline Lock Urinary Cath still in place: No Assessment/Plan Assessment/Plan 1. Left frontal parenchymal hemorrhage with right dominant hemiparesis with impaired mobility/gait/ADLs/cognition, aphasia, dysphagia. Continue PT/OT/ST. Medical management per neurology/neurosurgery. Monitor neuro status. Modified diet per ST, maintain aspiration precautions. SBA to CGA for bed mobility and transfers. 2. Hypertension. Continue to monitor BP. Medical management per internal medicine. 3. Hyperlipidemia. Continue statin. Subjective 24 Hr Interval Summary Free Text/Dictation Rehab progress note Subjective: Denies acute complaints. ROS: Denies headache, no dizziness, no abdominal pain, no chest pain, no shortness of breath, no vomiting. Exam/Review of Systems Vital Signs Vitals Vital Signs Date Time Temp Pulse Resp B/P Pulse Ox O2 Delivery O2 Flow Rate FiO2 09/15/16 07:41 98.0 73 18 147/79 96 09/12/16 17:30 Room Air Intake and Output 09/14/16 09/14/16 09/15/16 15:00 23:00 07:00 Intake Total 1580 ml 1110 ml Balance 1580 ml 1110 ml Exam General: Awake, alert, no acute distress CV: Regular rate, s1s2 Lungs: Respirations are nonlabored, no wheezing Abdomen soft, nontender Extremities without cyanosis, no distal edema Neuro: Aphasic. Right sided hemiparesis. Results Result Diagram: 09/14/16 0639 09/14/16 0639 Medications Medications Current Medications Amlodipine Besylate (Norvasc) 10 mg DAILY PO Last administered on 09/15/16 08: 48; Admin Dose 10 MG; Start 09/14/16 at 09:00 Atorvastatin Calcium (Lipitor) 10 mg DAILY@21 PO Last administered on 20:44; Admin Dose 10 MG; Start 09/13/16 at 21:00 Docusate Sodium (Colace) 100 mg BID PO ; Start 09/13/16 at 21:00 Hydralazine HCl (Apresoline) 10 mg Q6H PRN IV SBP > 165; Start 09/13/16 at 18: 30 Ondansetron HCl (Zofran Inj) 4 mg Q6H PRN IV NAUSEA AND/OR VOMITING; Start at 18:30 CARY ALFONSO Sep 15, 2016 11:12
--- NOTE | 2016-09-15 12:52 | CONS ---
Date/Time of Note Date/Time of Note DATE: 09/15/16 TIME: 12:51 Assessment/Plan Assessment/Plan Additional Assessment/Plan Assessment and recommendations; 1. Patient admitted with acute CVA involving right frontoparietal area with hemorrhage patient however has remained clinically stable. 2. Expressive aphasia. 3. History of hypertension. Continue current treatment. Continue physical therapy. Consultation Date/Type/Reason Admit Date/Time Sep 13, 2016 at 17:52 Initial Consult Date 09/14/16 Type of Consultation: Internal medicine 24 HR Interval Summary Free Text/Dictation Patient condition stable. Still remains a phasic. With left upper extremity weakness. She has remained hemodynamically stable. General exam; middle-aged woman, awake alert currently in no distress. Exam/Review of Systems Vital Signs Vitals Vital Signs Date Time Temp Pulse Resp B/P Pulse Ox O2 Delivery O2 Flow Rate FiO2 09/15/16 07:41 98.0 73 18 147/79 96 09/12/16 17:30 Room Air Intake and Output 09/14/16 09/14/16 09/15/16 15:00 23:00 07:00 Intake Total 1580 ml 1110 ml Balance 1580 ml 1110 ml Exam HEENT exam; supple neck, no JVD. No lymphadenopathy. Midline trachea. No thyromegaly. Chest exam; clear to auscultation. S1-S2 audible, no murmurs. Regular rhythm. Abdomen exam; soft, no organomegaly. Bowel sounds audible. Extremity exam; no peripheral edema. UPPER TRIMMER exam; patient remains aphasic and has persistent left upper extremity weakness. Results Result Diagram: 09/14/16 0639 09/14/16 0639 Medications Medications Current Medications Amlodipine Besylate (Norvasc) 10 mg DAILY PO Last administered on 09/15/16 08: 48; Admin Dose 10 MG; Start 09/14/16 at 09:00 Atorvastatin Calcium (Lipitor) 10 mg DAILY@21 PO Last administered on 20:44; Admin Dose 10 MG; Start 09/13/16 at 21:00 Docusate Sodium (Colace) 100 mg BID PO ; Start 09/13/16 at 21:00 Hydralazine HCl (Apresoline) 10 mg Q6H PRN IV SBP > 165; Start 09/13/16 at 18: 30 Ondansetron HCl (Zofran Inj) 4 mg Q6H PRN IV NAUSEA AND/OR VOMITING; Start at 18:30 WADE ALVAREZ Sep 15, 2016 12:52
[2016-09-15 16:13] VITALS: BP 117/61; RESP 18
[2016-09-15 20:20] VITALS: BP 118/69; RESP 19
[2016-09-15] MEDS: ATORVASTATIN 10 MG TAB PO SCH (20:27)
[2016-09-16 02:00] VITALS: BP 128/80; PULSE 69; RESP 18
[2016-09-16] MEDS: AMLODIPINE 10 MG TAB PO SCH (08:52)
[2016-09-16] MEDS: DOCUSATE SODIUM 100 MG CAP PO SCH ×2 (08:53→20:29)
[2016-09-16 20:00] VITALS: BP 127/61; RESP 18
[2016-09-16] MEDS: ATORVASTATIN 10 MG TAB PO SCH (20:28)
[2016-09-17 02:00] VITALS: BP 134/76; RESP 18
[2016-09-17 07:43] VITALS: BP 136/78; RESP 18
[2016-09-17] MEDS: DOCUSATE SODIUM 100 MG CAP PO SCH ×2 (09:03→20:10)
[2016-09-17] MEDS: AMLODIPINE 10 MG TAB PO SCH ×2 (09:03→20:09)
--- NOTE | 2016-09-17 11:17 | CONS ---
Date/Time of Note Date/Time of Note DATE: 09/17/16 TIME: 11:17 Assessment/Plan Assessment/Plan Chief Complaint/Hosp Course 1. 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 2. Expressive aphasia. -Continue speech therapy. 3. Essential hypertension. -Continue antihypertensive 4. Hyperlipidemia. -Continue statin. Case discussed with Dr. Sevilla Problems: Consultation Date/Type/Reason Admit Date/Time Sep 13, 2016 at 17:52 Initial Consult Date 09/14/16 Type of Consultation: Internal medicine 24 HR Interval Summary Free Text/Dictation Patient is sitting up in wheelchair. No acute overnight episodes. Exam/Review of Systems Vital Signs Vitals Vital Signs Date Time Temp Pulse Resp B/P Pulse Ox O2 Delivery O2 Flow Rate FiO2 09/17/16 07:43 98.1 74 18 136/78 96 09/16/16 02:00 Room Air Intake and Output 09/16/16 09/16/16 09/17/16 15:00 23:00 07:00 Intake Total 720 ml 240 ml Balance 720 ml 240 ml Exam General: Fragile female, not in any acute distress . HEENT: Normocephalic, Atraumatic, No laceration or hematoma; Eyes: PEERL, Conjunctiva clear, Anicteric sclera Neck: Supple without any lymphadenopathy, nontender, no JVD, no carotid bruits, trachea midline, no thyromegaly Cardiac: S1, S2 auscultated, regular rhythm and rate, no mumurs or gallop Pulmonary: Normal respiratory effort. Chest clear to auscultation bilaterally, no adventitious breath sounds GI: Abdomen normal to inspection. Soft, non tender, non- distended, no masses, no rebound tenderness or guarding. Bowel sounds active on all four quadrants Genitourinary: Deferred Extremities: With bilateral upper extremities weakness. No cyanosis, clubbing, or edema. Pulses [2+] bilaterally. Neurologic: With expressive aphasia. Awake and oriented. intact sensation. Skin: Clean,dry, and intact. No ecchymosis, no rashes, or lesions Results Result Diagram: 09/14/16 0639 09/14/16 0639 Medications Medications Current Medications Amlodipine Besylate (Norvasc) 10 mg DAILY PO Last administered on 09/17/16t 09: 03; Admin Dose 10 MG; Start 09/14/16 at 09:00 Atorvastatin Calcium (Lipitor) 10 mg DAILY@21 PO Last administered on 20:28; Admin Dose 10 MG; Start 09/13/16 at 21:00 Docusate Sodium (Colace) 100 mg BID PO Last administered on 09/17/16 09:03; Admin Dose 100 MG; Start 09/13/16 at 21:00 Hydralazine HCl (Apresoline) 10 mg Q6H PRN IV SBP > 165; Start 09/13/16 at 18: 30 Ondansetron HCl (Zofran Inj) 4 mg Q6H PRN IV NAUSEA AND/OR VOMITING; Start at 18:30 DAR CALDWELL NP Sep 17, 2016 11:17
--- NOTE | 2016-09-17 13:59 | CONS ---
Date/Time of Note Date/Time of Note DATE: 09/17/16 TIME: 13:58 Consult Date/Type/Reason Admit Date/Time Sep 13, 2016 at 17:52 Initial Consult Date 09/14/16 Type of Consultation: Internal medicine Objective Vital Signs Date Time Temp Pulse Resp B/P Pulse Ox O2 Delivery O2 Flow Rate FiO2 09/17/16 07:43 98.1 74 18 136/78 96 09/16/16 02:00 Room Air Intake and Output 09/16/16 09/16/16 09/17/16 15:00 23:00 07:00 Intake Total 720 ml 240 ml Balance 720 ml 240 ml INTERDISCIPLINARY TEAM CONFERENCE BOWEL- Cont BLADDER-Cont SKIN- intact OT- DRESSING-min BATHING-min TOILETING-min PT- BED MOBILITY-min TRANSFERS-cga AMBULATION-cga 100 feet SPEECH- COGNITION DYPHAGIA-mech soft and thin A/P- Interdisciplinary team conference held today. Please see interdisciplinary sheet. Working toward d.c. on 09/20 with post discharge follow up of physical therapy, occupational therapy. Results/Medications Result Diagram: 09/14/16 0639 09/14/16 0639 Medications Current Medications Amlodipine Besylate (Norvasc) 10 mg DAILY PO Last administered on 09/17/16 09: 03; Admin Dose 10 MG; Start 09/14/16 at 09:00 Atorvastatin Calcium (Lipitor) 10 mg DAILY@21 PO Last administered on 20:28; Admin Dose 10 MG; Start 09/13/16 at 21:00 Docusate Sodium (Colace) 100 mg BID PO Last administered on 09/17/16 09:03; Admin Dose 100 MG; Start 09/13/16 at 21:00 Hydralazine HCl (Apresoline) 10 mg Q6H PRN IV SBP > 165; Start 09/13/16 at 18: 30 Ondansetron HCl (Zofran Inj) 4 mg Q6H PRN IV NAUSEA AND/OR VOMITING; Start at 18:30 KANU MOSQUEDA MD Sep 17, 2016 13:59
[2016-09-17 14:00] VITALS: BP 137/70; RESP 18
[2016-09-17] MEDS ORDERED: ACETAMINOPHEN 325 MG TAB PO PRN (15:00)
[2016-09-17] MEDS ORDERED: LACTULOSE 30ML CUP PO PRN (15:00)
[2016-09-17] MEDS ORDERED: MAGNESIUM HYDROXIDE 30ML CUP PO PRN (15:00)
[2016-09-17] MEDS ORDERED: BISACODYL 10 MG SUPP PR PRN (15:00)
[2016-09-17 20:00] VITALS: BP 125/72; RESP 18
[2016-09-17] MEDS: ATORVASTATIN 10 MG TAB PO SCH (20:09)
[2016-09-17] MEDS: SENNA TAB PO SCH (20:12)
[2016-09-18 02:00] VITALS: BP 132/76; RESP 18
[2016-09-18 07:33] VITALS: BP 138/76; RESP 18
[2016-09-18] MEDS: AMLODIPINE 10 MG TAB PO SCH (08:59)
[2016-09-18] MEDS: DOCUSATE SODIUM 100 MG CAP PO SCH ×2 (09:00→20:12)
--- NOTE | 2016-09-18 11:00 | CONS ---
Date/Time of Note Date/Time of Note DATE: 09/18/16 TIME: 10:58 Consult Date/Type/Reason Admit Date/Time Sep 13, 2016 at 17:52 Initial Consult Date 09/14/16 Type of Consultation: Internal medicine Subjective Patient motivated for activities Objective Lungs clear anteriorly abdomen soft Min assist transfers and ambulation with the use of cane Vital Signs Date Time Temp Pulse Resp B/P Pulse Ox O2 Delivery O2 Flow Rate FiO2 09/18/16 07:33 98.4 71 18 138/76 97 09/16/16 02:00 Room Air Intake and Output 09/17/16 09/17/16 09/18/16 15:00 23:00 07:00 Intake Total 800 ml 400 ml 120 ml Balance 800 ml 400 ml 120 ml Results/Medications Result Diagram: 09/14/16 0639 09/14/16 0639 Medications Current Medications Amlodipine Besylate (Norvasc) 10 mg DAILY PO Last administered on 09/18/16 08: 59; Admin Dose 10 MG; Start 09/14/16 at 09:00 Atorvastatin Calcium (Lipitor) 10 mg DAILY@21 PO Last administered on 20:09; Admin Dose 10 MG; Start 09/13/16 at 21:00 Docusate Sodium (Colace) 100 mg BID PO Last administered on 09/17/16 09:03; Admin Dose 100 MG; Start 09/13/16 at 21:00 Hydralazine HCl (Apresoline) 10 mg Q6H PRN IV SBP > 165; Start 09/13/16 at 18: 30 Ondansetron HCl (Zofran Inj) 4 mg Q6H PRN IV NAUSEA AND/OR VOMITING; Start at 18:30 Senna (Senokot) 1 tab HS PO ; Start 09/17/16 at 21:00 Acetaminophen (Tylenol Tab) 650 mg Q4H PRN PO PAIN; Start 09/17/16 at 15:00 Bisacodyl (Dulcolax Supp) 10 mg DAILY PRN [place] CONSTIPATION; Start 09/17/16 at 15 :00 Magnesium Hydroxide (Milk Of Mag) 30 ml BID PRN PO CONSTIPATION; Start at 15:00 Lactulose (Enulose) 20 gm DAILY PRN PO CONSTIPATION; Start 09/17/16 at 15:00 Assessment/Plan Additional Assessment/Plan Rehabilitation -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 Continue activities with goal of discharge at end of the week. Aphasia, dysphasia-continue speech therapy Hypertension-monitor blood pressure Hyperlipidemia KANU MOSQUEDA MD Sep 18, 2016 11:00
--- NOTE | 2016-09-18 11:12 | CONS ---
Date/Time of Note Date/Time of Note DATE: 09/18/16 TIME: 11:11 Assessment/Plan Assessment/Plan Chief Complaint/Hosp Course 1. 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 2. Expressive aphasia. -Continue speech therapy. 3. Essential hypertension. Stable. -Continue antihypertensive and we will adjust as indicated 4. Hyperlipidemia. -Continue statin. Case discussed with Dr. Sevilla Problems: Consultation Date/Type/Reason Admit Date/Time Sep 13, 2016 at 17:52 Initial Consult Date 09/14/16 Type of Consultation: Internal medicine 24 HR Interval Summary Free Text/Dictation No acute overnight episodes. Exam/Review of Systems Vital Signs Vitals Vital Signs Date Time Temp Pulse Resp B/P Pulse Ox O2 Delivery O2 Flow Rate FiO2 09/18/16 07:33 98.4 71 18 138/76 97 09/16/16 02:00 Room Air Intake and Output 09/17/16 09/17/16 09/18/16 15:00 23:00 07:00 Intake Total 800 ml 400 ml 120 ml Balance 800 ml 400 ml 120 ml Exam General: Fragile female, not in any acute distress . HEENT: Normocephalic, Atraumatic, No laceration or hematoma; Eyes: PEERL, Conjunctiva clear, Anicteric sclera Neck: Supple without any lymphadenopathy, nontender, no JVD, no carotid bruits, trachea midline, no thyromegaly Cardiac: S1, S2 auscultated, regular rhythm and rate, no mumurs or gallop Pulmonary: Normal respiratory effort. Chest clear to auscultation bilaterally, no adventitious breath sounds GI: Abdomen normal to inspection. Soft, non tender, non- distended, no masses, no rebound tenderness or guarding. Bowel sounds active on all four quadrants Genitourinary: Deferred Extremities: With bilateral upper extremities weakness. No cyanosis, clubbing, or edema. Pulses [2+] bilaterally. Neurologic: With expressive aphasia. Awake and oriented. intact sensation. Skin: Clean,dry, and intact. No ecchymosis, no rashes, or lesions Results Result Diagram: 09/14/16 0639 09/14/16 0639 Medications Medications Current Medications Amlodipine Besylate (Norvasc) 10 mg DAILY PO Last administered on 09/18/16t 08: 59; Admin Dose 10 MG; Start 09/14/16 at 09:00 Atorvastatin Calcium (Lipitor) 10 mg DAILY@21 PO Last administered on 20:09; Admin Dose 10 MG; Start 09/13/16 at 21:00 Docusate Sodium (Colace) 100 mg BID PO Last administered on 09/17/16 09:03; Admin Dose 100 MG; Start 09/13/16 at 21:00 Hydralazine HCl (Apresoline) 10 mg Q6H PRN IV SBP > 165; Start 09/13/16 at 18: 30 Ondansetron HCl (Zofran Inj) 4 mg Q6H PRN IV NAUSEA AND/OR VOMITING; Start at 18:30 Senna (Senokot) 1 tab HS PO ; Start 09/17/16 at 21:00 Acetaminophen (Tylenol Tab) 650 mg Q4H PRN PO PAIN; Start 09/17/16 at 15:00 Bisacodyl (Dulcolax Supp) 10 mg DAILY PRN [place] CONSTIPATION; Start 09/17/16 at 15 :00 Magnesium Hydroxide (Milk Of Mag) 30 ml BID PRN PO CONSTIPATION; Start at 15:00 Lactulose (Enulose) 20 gm DAILY PRN PO CONSTIPATION; Start 09/17/16 at 15:00 DAR CALDWELL NP Sep 18, 2016 11:12
[2016-09-18 14:00] VITALS: BP 120/68; RESP 18
[2016-09-18 20:00] VITALS: BP 125/64; PULSE 85; RESP 20
[2016-09-18] MEDS: ATORVASTATIN 10 MG TAB PO SCH (20:11)
[2016-09-18] MEDS: SENNA TAB PO SCH (20:13)
[2016-09-19 08:32] VITALS: BP 142/71; PULSE 69; RESP 18
[2016-09-19] MEDS: AMLODIPINE 10 MG TAB PO SCH (08:34)
[2016-09-19] MEDS: DOCUSATE SODIUM 100 MG CAP PO SCH ×2 (08:34→20:04)
--- NOTE | 2016-09-19 11:04 | CONS ---
Date/Time of Note Date/Time of Note DATE: 09/19/16 TIME: 11:04 Consult Date/Type/Reason Admit Date/Time Sep 13, 2016 at 17:52 Initial Consult Date 09/14/16 Type of Consultation: Internal medicine Subjective Comfortable no complaints Objective Lungs are clear anteriorly Standby assist ambulation Vital Signs Date Time Temp Pulse Resp B/P Pulse Ox O2 Delivery O2 Flow Rate FiO2 09/19/16 08:32 97.6 69 18 142/71 97 Room Air Intake and Output 09/18/16 09/18/16 09/19/16 15:00 23:00 07:00 Intake Total 800 ml 1120 ml 360 ml Balance 800 ml 1120 ml 360 ml Results/Medications Medications Current Medications Amlodipine Besylate (Norvasc) 10 mg DAILY PO Last administered on 09/19/16 08: 34; Admin Dose 10 MG; Start 09/14/16 at 09:00 Atorvastatin Calcium (Lipitor) 10 mg DAILY@21 PO Last administered on 20:11; Admin Dose 10 MG; Start 09/13/16 at 21:00 Docusate Sodium (Colace) 100 mg BID PO Last administered on 09/17/16 09:03; Admin Dose 100 MG; Start 09/13/16 at 21:00 Hydralazine HCl (Apresoline) 10 mg Q6H PRN IV SBP > 165; Start 09/13/16 at 18: 30 Ondansetron HCl (Zofran Inj) 4 mg Q6H PRN IV NAUSEA AND/OR VOMITING; Start at 18:30 Senna (Senokot) 1 tab HS PO ; Start 09/17/16 at 21:00 Acetaminophen (Tylenol Tab) 650 mg Q4H PRN PO PAIN; Start 09/17/16 at 15:00 Bisacodyl (Dulcolax Supp) 10 mg DAILY PRN [place] CONSTIPATION; Start 09/17/16 at 15 :00 Magnesium Hydroxide (Milk Of Mag) 30 ml BID PRN PO CONSTIPATION; Start at 15:00 Lactulose (Enulose) 20 gm DAILY PRN PO CONSTIPATION; Start 09/17/16 at 15:00 Assessment/Plan Additional Assessment/Plan Rehabilitation -left frontal parenchymal hemorrhagic CVA with right-sided weakness Patient continues to improve. Anticipate dc tomorrow. SW working on dc planning. Aphasia, dysphasia-continue speech therapy Hypertension-monitor blood pressure Hyperlipidemia KANU MOSQUEDA MD Sep 19, 2016 11:04
--- NOTE | 2016-09-19 14:09 | CONS ---
Date/Time of Note Date/Time of Note DATE: 09/19/16 TIME: 14:08 Assessment/Plan Assessment/Plan Chief Complaint/Hosp Course 1. 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 2. Expressive aphasia. -Continue speech therapy. 3. Essential hypertension. Stable. -Continue antihypertensive and we will adjust as indicated 4. Hyperlipidemia. -Continue statin. Plan: Discharge planning for tomorrow. Patient is medically cleared for discharge with continuation of physical therapy. Case discussed with Dr. Sevilla Problems: Consultation Date/Type/Reason Admit Date/Time Sep 13, 2016 at 17:52 Initial Consult Date 09/14/16 Type of Consultation: Internal medicine 24 HR Interval Summary Free Text/Dictation No overnight episodes. Discharge planning for tomorrow. Exam/Review of Systems Vital Signs Vitals Vital Signs Date Time Temp Pulse Resp B/P Pulse Ox O2 Delivery O2 Flow Rate FiO2 09/19/16 08:32 97.6 69 18 142/71 97 Room Air Intake and Output 09/18/16 09/18/16 09/19/16 15:00 23:00 07:00 Intake Total 800 ml 1120 ml 360 ml Balance 800 ml 1120 ml 360 ml Exam General: Fragile female, not in any acute distress . HEENT: Normocephalic, Atraumatic, No laceration or hematoma; Eyes: PEERL, Conjunctiva clear, Anicteric sclera Neck: Supple without any lymphadenopathy, nontender, no JVD, no carotid bruits, trachea midline, no thyromegaly Cardiac: S1, S2 auscultated, regular rhythm and rate, no mumurs or gallop Pulmonary: Normal respiratory effort. Chest clear to auscultation bilaterally, no adventitious breath sounds GI: Abdomen normal to inspection. Soft, non tender, non- distended, no masses, no rebound tenderness or guarding. Bowel sounds active on all four quadrants Genitourinary: Deferred Extremities: With bilateral upper extremities weakness. No cyanosis, clubbing, or edema. Pulses [2+] bilaterally. Neurologic: With expressive aphasia. Awake and oriented. intact sensation. Skin: Clean,dry, and intact. No ecchymosis, no rashes, or lesions Medications Medications Current Medications Amlodipine Besylate (Norvasc) 10 mg DAILY PO Last administered on 09/19/16t 08: 34; Admin Dose 10 MG; Start 09/14/16 at 09:00 Atorvastatin Calcium (Lipitor) 10 mg DAILY@21 PO Last administered on 20:11; Admin Dose 10 MG; Start 09/13/16 at 21:00 Docusate Sodium (Colace) 100 mg BID PO Last administered on 09/17/16 09:03; Admin Dose 100 MG; Start 09/13/16 at 21:00 Hydralazine HCl (Apresoline) 10 mg Q6H PRN IV SBP > 165; Start 09/13/16 at 18: 30 Ondansetron HCl (Zofran Inj) 4 mg Q6H PRN IV NAUSEA AND/OR VOMITING; Start at 18:30 Senna (Senokot) 1 tab HS PO ; Start 09/17/16 at 21:00 Acetaminophen (Tylenol Tab) 650 mg Q4H PRN PO PAIN; Start 09/17/16 at 15:00 Bisacodyl (Dulcolax Supp) 10 mg DAILY PRN [place] CONSTIPATION; Start 09/17/16 at 15 :00 Magnesium Hydroxide (Milk Of Mag) 30 ml BID PRN PO CONSTIPATION; Start at 15:00 Lactulose (Enulose) 20 gm DAILY PRN PO CONSTIPATION; Start 09/17/16 at 15:00 DAR CALDWELL NP Sep 19, 2016 14:09
[2016-09-19 14:20] VITALS: BP 136/72; PULSE 80; RESP 18
[2016-09-19 19:52] VITALS: BP 127/67; PULSE 78; RESP 16
[2016-09-19] MEDS: ATORVASTATIN 10 MG TAB PO SCH (19:59)
[2016-09-19] MEDS: SENNA TAB PO SCH (20:03)
[2016-09-20 07:30] VITALS: BP 135/75; RESP 20
[2016-09-20] MEDS: AMLODIPINE 10 MG TAB PO SCH (08:07)
[2016-09-20] MEDS: DOCUSATE SODIUM 100 MG CAP PO SCH ×2 (08:07→08:09)
--- NOTE | 2016-09-20 11:03 | DS ---
Date/Time of Note Date/Time of Note DATE: 09/20/16 TIME: 11:02 Discharge Summary Admission/Discharge Info Admit Date/Time Sep 13, 2016 at 17:52 Discharge Date/Time Discharge Diagnosis 1. hemorrhagic CVA with right-sided weakness 2. expressive aphasia 3. hypertension 4. Improvements in self-care and mobility and cognition Patient Condition: Good Hospital Course Patient was admitted for complaints of interdisciplinary acute rehab made excellent functional gains during the course of the stay. Patient progressed from an initial moderate to maximal assist for self-care mobility tasks and progressed to the point of supervised to standby assist for all areas of self- care mobility including ambulating with the use of a cane. Home Meds Active Scripts Atorvastatin (Atorvastatin) 10 Mg Tablet, 10 MG PO HS for 30 Days, #30 TAB 2 Refills Prov:FRANCISCO DWYER 09/13/16 Amlodipine Besylate* (Amlodipine Besylate*) 5 Mg Tablet, 10 MG PO DAILY for 30 Days, #30 TAB 2 Refills Prov:FRANCISCO DWYER 09/13/16 Discontinued Reported Medications Atenolol* (Atenolol*) 50 Mg Tablet, 50 MG PO DAILY, #30 TAB 09/06/16 Aspirin* (Aspirin* EC) 81 Mg Tablet., 81 MG PO DAILY, TAB 09/06/16 Aspirin* (Aspirin* EC) 81 Mg Tablet.dr, 81 MG PO DAILY, TAB 09/06/16 Atenolol* (Atenolol*) 50 Mg Tablet, 50 MG PO DAILY, #30 TAB 09/06/16 Primary Care Provider Not On Staff Doctor KANU MOSQUEDA MD Sep 20, 2016 11:03
--- NOTE | 2016-09-20 15:58 | CONS ---
Date/Time of Note Date/Time of Note DATE: 09/20/16 TIME: 15:57 Assessment/Plan Assessment/Plan Chief Complaint/Hosp Course 1. 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 2. Expressive aphasia. -Continue speech therapy. 3. Essential hypertension. Stable. -Continue antihypertensive and we will adjust as indicated 4. Hyperlipidemia. -Continue statin. Plan: Patient is medically cleared for discharge with continuation of physical therapy. Case discussed with Dr. Sevilla Problems: Consultation Date/Type/Reason Admit Date/Time Sep 13, 2016 at 17:52 Initial Consult Date 09/14/16 Type of Consultation: Internal medicine 24 HR Interval Summary Free Text/Dictation No acute overnight episodes. Patient is getting ready for discharge. Exam/Review of Systems Vital Signs Vitals Vital Signs Date Time Temp Pulse Resp B/P Pulse Ox O2 Delivery O2 Flow Rate FiO2 09/20/16 07:30 97.4 74 20 135/75 99 09/19/16 19:52 Room Air Intake and Output 09/19/16 09/19/16 09/20/16 15:00 23:00 07:00 Intake Total 840 ml 200 ml Balance 840 ml 200 ml Exam General: Fragile female, not in any acute distress . HEENT: Normocephalic, Atraumatic, No laceration or hematoma; Eyes: PEERL, Conjunctiva clear, Anicteric sclera Neck: Supple without any lymphadenopathy, nontender, no JVD, no carotid bruits, trachea midline, no thyromegaly Cardiac: S1, S2 auscultated, regular rhythm and rate, no mumurs or gallop Pulmonary: Normal respiratory effort. Chest clear to auscultation bilaterally, no adventitious breath sounds GI: Abdomen normal to inspection. Soft, non tender, non- distended, no masses, no rebound tenderness or guarding. Bowel sounds active on all four quadrants Genitourinary: Deferred Extremities: With bilateral upper extremities weakness. No cyanosis, clubbing, or edema. Pulses [2+] bilaterally. Neurologic: With expressive aphasia. Awake and oriented. intact sensation. Skin: Clean,dry, and intact. No ecchymosis, no rashes, or lesions Medications Medications Current Medications Amlodipine Besylate (Norvasc) 10 mg DAILY PO Last administered on 09/20/16t 08: 07; Admin Dose 10 MG; Start 09/14/16 at 09:00 Atorvastatin Calcium (Lipitor) 10 mg DAILY@21 PO Last administered on 19:59; Admin Dose 10 MG; Start 09/13/16 at 21:00 Docusate Sodium (Colace) 100 mg BID PO Last administered on 09/17/16 09:03; Admin Dose 100 MG; Start 09/13/16 at 21:00 Hydralazine HCl (Apresoline) 10 mg Q6H PRN IV SBP > 165; Start 09/13/16 at 18: 30 Ondansetron HCl (Zofran Inj) 4 mg Q6H PRN IV NAUSEA AND/OR VOMITING; Start at 18:30 Senna (Senokot) 1 tab HS PO ; Start 09/17/16 at 21:00 Acetaminophen (Tylenol Tab) 650 mg Q4H PRN PO PAIN; Start 09/17/16 at 15:00 Bisacodyl (Dulcolax Supp) 10 mg DAILY PRN [place] CONSTIPATION; Start 09/17/16 at 15 :00 Magnesium Hydroxide (Milk Of Mag) 30 ml BID PRN PO CONSTIPATION; Start at 15:00 Lactulose (Enulose) 20 gm DAILY PRN PO CONSTIPATION; Start 09/17/16 at 15:00 DAR CALDWELL V. PHOTOGRAPHIC PROCESS ATTENDANT Sep 20, 2016 15:58
[2016-09-20 19:00] VITALS: BP 127/72; RESP 18
== END 2016-09-20 20:00 | disposition home health service (06) | DRG 57 ==
LOC: VRC 17:52
PROVIDERS: ADMIT Physical Medicine & Rehabilitation; ATTEND Internal Medicine Pulmonary Disease
DX: I69.391 Dysphagia following cerebral infarction (principal); I10 Essential (primary) hypertension; I69.320 Aphasia following cerebral infarction; Z74.09 Other reduced mobility; I69.319 Unspecified symptoms and signs involving cognitive functions following cerebral infarction; E78.5 Hyperlipidemia, unspecified; R26.9 Unspecified abnormalities of gait and mobility
CPT/HCPCS: 80048; 81001; 85025; 87081; 87086; 92507; 92523; 92610; 97110; 97112; 97116; 97150; 97163; 97167; 97530; 97535